=== PATIENT | female | born 1960 | race Caucasian/White ===

== ENCOUNTER 2017-03-12 10:16 | Inpatient (IN) | payer MEDICARE, MEDICAID ==
[~2017-03-12] VITALS: Ht 170.2 cm; Wt 63.0 kg
[~2017-03-12 10:16] MED LIST: ALBU2.5V13 NEB; ALBU6.7H3 IH; ASPI-612 PO; BUPR300T54 PO; CYAN100020 SL; FLUT1AER INH; FOLI0.4T2 PO; GUAI600T45 PO; HYDR-569 PO; IBUP-2264 PO; IPRA3AMP IH; METF500T PO; METH4TAB81 PO; MOME17SP NS; OMEG500C PO; PANT40TA4 PO; PRAV80TA PO; PRED10TA PO; QUET150T2 PO; ZALE10CA PO; [UNRECOGNIZED DRUG - CODE] PO
[2017-03-12] MEDS ORDERED: normal saline 1000ML IV soln IVB ONE (11:40)
[2017-03-12] MEDS ORDERED: methylPREDNISolone sod succ 125mg/2ml vial IV ONE (11:40)
[2017-03-12 11:58] LABS: BASOPHILS % (AUTO) 0 % (0-1); EOSINOPHILS # (AUTO) 0.3 X10'3 (0-0.9); EOSINOPHILS % (AUTO) 1.9 % (0-6); HEMOGLOBIN 12.3 g/dl (12.0-16.0); LYMPHOCYTES # (AUTO) 0.8 X10'3 (1.1-4.8); LYMPHOCYTES % (AUTO) 4.7 % (21-51); MEAN CORPUSCULAR HEMOGLOBIN 28.5 PG (27.0-31.0); MEAN CORPUSCULAR HGB CONC 33.2 % (33.0-36.5); MEAN CORPUSCULAR VOLUME 85.7 FL (78-98); MEAN PLATELET VOLUME 6.9 FL (7.4-10.4); MONOCYTES # (AUTO) 0.6 X10'3 (0-0.9); MONOCYTES % (AUTO) 3.5 % (2-12); NEUTROPHILS # (AUTO) 14.4 X10'3 (1.8-7.7); NEUTROPHILS % (AUTO) 89.9 % (42-75); PLATELET COUNT 309 X10'3 (140-440); RED BLOOD COUNT 4.32 X10'6 (4.20-5.60); RED CELL DISTRIBUTION WIDTH 15.5 % (11.5-14.5)
[2017-03-12 12:08] LABS: PROTHROMBIN TIME 9.9 SECONDS (9.0-12.0)
[2017-03-12 12:15] LABS: ALANINE AMINOTRANSFERASE 25 U/L (12-78); ALBUMIN 3.5 G/DL (3.4-5.0); ALBUMIN/GLOBULIN RATIO 0.8 (1.1-1.5); ALKALINE PHOSPHATASE 52 IU/L (46-116); ANION GAP 12 (8-16); ASPARTATE AMINO TRANSFERASE 10 U/L (10-37); BILIRUBIN,TOTAL 0.5 MG/DL (0.1-1.0); BLOOD UREA NITROGEN 11 MG/DL (7-18); BUN/CREATININE RATIO 10.8 (6.6-38.0); CALCIUM 9.8 MG/DL (8.5-10.1); CHLORIDE 102 MMOL/L (99-107); CREATININE 1.02 MG/DL (0.40-0.90); GLUCOSE 125 MG/DL (70-104); MAGNESIUM 1.6 MG/DL (1.5-2.4); POTASSIUM 4.1 MMOL/L (3.5-5.1); SODIUM 141 MMOL/L (135-145); eGFR 56 ML/MIN
[2017-03-12] MEDS ORDERED: ipratropium/albuterol 3ml nebule NEB ONE ×2 (12:55→13:30)
[2017-03-12] MEDS ORDERED: CefTRIAXone 1 gm/50ml D5W ADV 50 ML IV ONE (14:00)
[2017-03-12] MEDS ORDERED: ipratropium/albuterol 3ml nebule IH PRN (15:35)
[2017-03-12] MEDS ORDERED: potassium Cl 20 mEq SR tablet PO PRN ×2 (15:55)
[2017-03-12] MEDS ORDERED: ondansetron/PF 4mg/2ml inj IV PRN (15:55)
[2017-03-12] MEDS ORDERED: mag hydrox/Alum hydrox/simeth 30ml oral suspension PO PRN (15:55)
[2017-03-12] MEDS ORDERED: magnesium 2GM in 50ml NS 50 ML IV PRN (15:55)
[2017-03-12] MEDS ORDERED: potassium Cl 40MEQ/NS 500ml 500 ML IV PRN ×2 (15:55)
[2017-03-12] MEDS ORDERED: magnesium hydroxide 30ml (MOM) UD suspension PO PRN (15:55)
[2017-03-12] MEDS ORDERED: acetaminophen 325mg tablet PO PRN (15:55)
[2017-03-12] MEDS ORDERED: magnesium 4gm in 100ml NS 100 ML IV PRN (15:55)
[2017-03-12] MEDS ORDERED: HYDROcodone/acetaminophen 5mg/325mg tablet PO PRN (15:55)
[2017-03-12] MEDS ORDERED: glucagon, human recombinant 1mg kit SUBCUT PRN (16:55)
[2017-03-12] MEDS ORDERED: dextrose 50%-water 50ml dispensing syringe IV PRN ×2 (16:55)
[2017-03-12] MEDS ORDERED: dextrose ORAL solution 15 GM/59 ML bottle PO PRN ×2 (16:55)
[2017-03-12] MEDS ORDERED: MESSAGE TO PHARMACY PO ONE (16:55)
[2017-03-12 17:18] LABS: HEMOGLOBIN A1C 6.6 % (4.5-6.2)
[2017-03-12 20:00] VITALS: BP 142/76
[2017-03-12] MEDS: ipratropium/albuterol 3ml nebule NEB SCH (20:57)
[2017-03-12] MEDS: insulin Lispro (HumaLOG) vial - multi-dose SQ SCH (21:31)
[2017-03-12] MEDS: Insulin Detemir pen SQ SCH (21:32)
[2017-03-12] MEDS: methylPREDNISolone sod succ 125mg/2ml vial IV SCH (21:38)
[2017-03-12] MEDS: guaiFENesin 200 MG/10 ML oral syrup UD cup PO SCH (21:38)
[2017-03-12] MEDS: buPROPion SR 150mg tablet PO SCH (21:38)
[2017-03-12] MEDS: QUETIAPINE 150 MG TAB.SR.24H PO SCH (22:13)
[2017-03-12] MEDS: pravastatin 40mg tablet PO SCH (22:14)
[2017-03-13] VITALS: BP 129/77
[2017-03-13] MEDS: methylPREDNISolone sod succ 125mg/2ml vial IV SCH ×4 (02:20→21:31)
[2017-03-13] MEDS: guaiFENesin 200 MG/10 ML oral syrup UD cup PO SCH ×4 (02:20→21:33)
[2017-03-13] MEDS: ipratropium/albuterol 3ml nebule NEB SCH ×4 (02:45→21:23)
[2017-03-13 05:36] LABS: BASOPHILS % (AUTO) 0 % (0-1); EOSINOPHILS # (AUTO) 0.2 X10'3 (0-0.9); EOSINOPHILS % (AUTO) 1.6 % (0-6); HEMATOCRIT 33.8 % (35.0-45.0); LYMPHOCYTES # (AUTO) 0.5 X10'3 (1.1-4.8); LYMPHOCYTES % (AUTO) 3.8 % (21-51); MEAN CORPUSCULAR HEMOGLOBIN 28.1 PG (27.0-31.0); MEAN CORPUSCULAR HGB CONC 32.5 % (33.0-36.5); MEAN CORPUSCULAR VOLUME 86.4 FL (78-98); MEAN PLATELET VOLUME 7.4 FL (7.4-10.4); MONOCYTES # (AUTO) 0.4 X10'3 (0-0.9); MONOCYTES % (AUTO) 3.2 % (2-12); NEUTROPHILS % (AUTO) 91.4 % (42-75); PLATELET COUNT 287 X10'3 (140-440); RED BLOOD COUNT 3.91 X10'6 (4.20-5.60); RED CELL DISTRIBUTION WIDTH 15.6 % (11.5-14.5)
[2017-03-13 05:57] LABS: ALBUMIN 3.1 G/DL (3.4-5.0); ANION GAP 11 (8-16); BLOOD UREA NITROGEN 12 MG/DL (7-18); BUN/CREATININE RATIO 14.8 (6.6-38.0); CALCIUM 9.7 MG/DL (8.5-10.1); CHLORIDE 103 MMOL/L (99-107); CREATININE 0.81 MG/DL (0.40-0.90); GLUCOSE 222 MG/DL (70-104); MAGNESIUM 1.9 MG/DL (1.5-2.4); SODIUM 141 MMOL/L (135-145); TOTAL CARBON DIOXIDE 26.6 MMOL/L (24-32); eGFR 73 ML/MIN
[2017-03-13 07:00] VITALS: BP 128/81
[2017-03-13] MEDS: K and/or MAG REPLACEMENT MC SCH (08:00)
[2017-03-13] MEDS ORDERED: CefTRIAXone 1 gm/50ml D5W ADV 50 ML IV SCH (08:00)
[2017-03-13] MEDS: OMEGA-3/DHA/EPA/FISH OIL 1 EACH CAPSULE.DR PO SCH (08:00)
[2017-03-13] MEDS: fluticasone nasal spray 16GM bottle NS SCH (10:34)
[2017-03-13] MEDS: cefTRIAXone 1g/NS 100ml IVPB 100 ML IV SCH (10:35)
[2017-03-13] MEDS: enoxaparin 40mg/0.4ml syringe SUBCUT SCH (10:35)
[2017-03-13] MEDS: pantoprazole 40mg Tablet.DR PO SCH (10:36)
[2017-03-13] MEDS: aspirin 81mg tablet.DR PO SCH (10:36)
[2017-03-13] MEDS: buPROPion SR 150mg tablet PO SCH ×2 (10:36→21:32)
[2017-03-13] MEDS: folic acid 0.4mg tablet PO SCH (10:36)
[2017-03-13] MEDS: insulin Lispro (HumaLOG) vial - multi-dose SQ SCH ×3 (10:53→21:25)
[2017-03-13 11:00] VITALS: BP 131/85
[2017-03-13 18:00] VITALS: BP 140/86
[2017-03-13] MEDS: Insulin Detemir pen SQ SCH (21:28)
[2017-03-13] MEDS: lactobacillus rhamnosus 10,000 MMU CELLS/CAPSULE PO SCH (21:31)
[2017-03-13] MEDS: QUETIAPINE 150 MG TAB.SR.24H PO SCH (21:33)
[2017-03-13] MEDS: pravastatin 40mg tablet PO SCH (21:33)
[2017-03-14] VITALS: BP 103/62
[2017-03-14] MEDS: guaiFENesin 200 MG/10 ML oral syrup UD cup PO SCH ×4 (02:38→20:42)
[2017-03-14] MEDS: methylPREDNISolone sod succ 125mg/2ml vial IV SCH ×3 (02:38→14:05)
[2017-03-14] MEDS: ipratropium/albuterol 3ml nebule NEB SCH ×4 (02:51→20:29)
[2017-03-14 06:39] LABS: ALBUMIN 3.2 G/DL (3.4-5.0); ANION GAP 12 (8-16); BLOOD UREA NITROGEN 17 MG/DL (7-18); BUN/CREATININE RATIO 17.9 (6.6-38.0); CALCIUM 9.9 MG/DL (8.5-10.1); CHLORIDE 103 MMOL/L (99-107); CREATININE 0.95 MG/DL (0.40-0.90); GLUCOSE 180 MG/DL (70-104); POTASSIUM 4.1 MMOL/L (3.5-5.1); SODIUM 141 MMOL/L (135-145); TOTAL CARBON DIOXIDE 26.5 MMOL/L (24-32); eGFR 61 ML/MIN
[2017-03-14 07:13] LABS: BASOPHILS % (AUTO) 0.2 % (0-1); EOSINOPHILS % (AUTO) 0 % (0-6); HEMATOCRIT 35.3 % (35.0-45.0); HEMOGLOBIN 11.5 g/dl (12.0-16.0); LYMPHOCYTES # (AUTO) 0.6 X10'3 (1.1-4.8); LYMPHOCYTES % (AUTO) 3.4 % (21-51); MEAN CORPUSCULAR HEMOGLOBIN 28.4 PG (27.0-31.0); MEAN CORPUSCULAR HGB CONC 32.5 % (33.0-36.5); MEAN CORPUSCULAR VOLUME 87.3 FL (78-98); MEAN PLATELET VOLUME 7.2 FL (7.4-10.4); MONOCYTES # (AUTO) 0.6 X10'3 (0-0.9); MONOCYTES % (AUTO) 3.1 % (2-12); NEUTROPHILS # (AUTO) 17.5 X10'3 (1.8-7.7); NEUTROPHILS % (AUTO) 93.3 % (42-75); PLATELET COUNT 325 X10'3 (140-440); RED BLOOD COUNT 4.05 X10'6 (4.20-5.60); RED CELL DISTRIBUTION WIDTH 15.5 % (11.5-14.5); WHITE BLOOD COUNT 18.8 X10'3 (4.5-11.0)
[2017-03-14 08:00] VITALS: BP 132/89
[2017-03-14] MEDS: K and/or MAG REPLACEMENT MC SCH (08:00)
[2017-03-14] MEDS: OMEGA-3/DHA/EPA/FISH OIL 1 EACH CAPSULE.DR PO SCH (08:00)
[2017-03-14] MEDS: cefTRIAXone 1g/NS 100ml IVPB 100 ML IV SCH (08:20)
[2017-03-14] MEDS: enoxaparin 40mg/0.4ml syringe SUBCUT SCH (08:21)
[2017-03-14] MEDS: folic acid 0.4mg tablet PO SCH (08:24)
[2017-03-14] MEDS: lactobacillus rhamnosus 10,000 MMU CELLS/CAPSULE PO SCH ×2 (08:24→20:43)
[2017-03-14] MEDS: pantoprazole 40mg Tablet.DR PO SCH (08:24)
[2017-03-14] MEDS: buPROPion SR 150mg tablet PO SCH ×2 (08:25→20:43)
[2017-03-14] MEDS: aspirin 81mg tablet.DR PO SCH (08:28)
[2017-03-14] MEDS: fluticasone nasal spray 16GM bottle NS SCH (08:35)
[2017-03-14] MEDS: insulin Lispro (HumaLOG) vial - multi-dose SQ SCH ×3 (10:04→18:57)
[2017-03-14 11:00] VITALS: BP 146/88
[2017-03-14 18:00] VITALS: BP 141/95
[2017-03-14] MEDS: QUETIAPINE 150 MG TAB.SR.24H PO SCH (20:42)
[2017-03-14] MEDS: pravastatin 40mg tablet PO SCH (20:42)
[2017-03-14] MEDS: Insulin Detemir pen SQ SCH (20:48)
[2017-03-15] VITALS: BP 129/74
[2017-03-15] MEDS: guaiFENesin 200 MG/10 ML oral syrup UD cup PO SCH ×2 (02:36→07:37)
[2017-03-15] MEDS: ipratropium/albuterol 3ml nebule NEB SCH ×2 (02:56→08:33)
[2017-03-15 06:41] LABS: BASOPHILS % (AUTO) 0.2 % (0-1); EOSINOPHILS # (AUTO) 0.2 X10'3 (0-0.9); EOSINOPHILS % (AUTO) 1.2 % (0-6); HEMATOCRIT 38.6 % (35.0-45.0); HEMOGLOBIN 12.7 g/dl (12.0-16.0); LYMPHOCYTES # (AUTO) 1.4 X10'3 (1.1-4.8); MEAN CORPUSCULAR HEMOGLOBIN 28.4 PG (27.0-31.0); MEAN CORPUSCULAR HGB CONC 32.9 % (33.0-36.5); MEAN CORPUSCULAR VOLUME 86.5 FL (78-98); MEAN PLATELET VOLUME 6.9 FL (7.4-10.4); MONOCYTES # (AUTO) 1.2 X10'3 (0-0.9); MONOCYTES % (AUTO) 7.6 % (2-12); NEUTROPHILS # (AUTO) 12.7 X10'3 (1.8-7.7); PLATELET COUNT 324 X10'3 (140-440); RED BLOOD COUNT 4.46 X10'6 (4.20-5.60); RED CELL DISTRIBUTION WIDTH 15.3 % (11.5-14.5); WHITE BLOOD COUNT 15.5 X10'3 (4.5-11.0)
[2017-03-15] MEDS: K and/or MAG REPLACEMENT MC SCH (07:06)
[2017-03-15] MEDS: OMEGA-3/DHA/EPA/FISH OIL 1 EACH CAPSULE.DR PO SCH (07:06)
[2017-03-15 07:36] LABS: ALBUMIN 3.4 G/DL (3.4-5.0); ANION GAP 11 (8-16); BLOOD UREA NITROGEN 23 MG/DL (7-18); BUN/CREATININE RATIO 26.7 (6.6-38.0); CALCIUM 10.1 MG/DL (8.5-10.1); CHLORIDE 104 MMOL/L (99-107); CREATININE 0.86 MG/DL (0.40-0.90); GLUCOSE 86 MG/DL (70-104); MAGNESIUM 2.1 MG/DL (1.5-2.4); POTASSIUM 3.8 MMOL/L (3.5-5.1); SODIUM 142 MMOL/L (135-145); TOTAL CARBON DIOXIDE 26.9 MMOL/L (24-32); eGFR 68 ML/MIN
[2017-03-15] MEDS: enoxaparin 40mg/0.4ml syringe SUBCUT SCH (07:36)
[2017-03-15] MEDS: folic acid 0.4mg tablet PO SCH (07:37)
[2017-03-15] MEDS: aspirin 81mg tablet.DR PO SCH (07:37)
[2017-03-15] MEDS: lactobacillus rhamnosus 10,000 MMU CELLS/CAPSULE PO SCH (07:37)
[2017-03-15] MEDS: buPROPion SR 150mg tablet PO SCH (07:37)
[2017-03-15] MEDS: cefTRIAXone 1g/NS 100ml IVPB 100 ML IV SCH (07:38)
[2017-03-15] MEDS: pantoprazole 40mg Tablet.DR PO SCH (07:38)
[2017-03-15 08:00] VITALS: BP 127/87
[2017-03-15] MEDS ORDERED: predniSONE 20 mg tablet PO SCH (08:30)
[2017-03-15] MEDS: fluticasone nasal spray 16GM bottle NS SCH (08:49)
[2017-03-15] MEDS ORDERED: LEVO500T2 PO (12:15)
[2017-03-15] MEDS ORDERED: PRED10TA23 PO (12:15)
[2017-03-15 13:43] VITALS: BP 129/80
== END 2017-03-15 13:20 | disposition home or self-care (01) | DRG 871 ==
LOC: ER 10:17 → ED HOLD 15:53 → SUR 3N 19:17
PROVIDERS: ADMIT Internal Medicine; ATTEND Internal Medicine
DX: A41.9 Sepsis, unspecified organism (principal); J18.1 Lobar pneumonia, unspecified organism; J96.00 Acute respiratory failure, unspecified whether with hypoxia or hypercapnia; J44.0 Chronic obstructive pulmonary disease with (acute) lower respiratory infection; E03.9 Hypothyroidism, unspecified; E11.9 Type 2 diabetes mellitus without complications; F41.9 Anxiety disorder, unspecified; F32.9 Major depressive disorder, single episode, unspecified; E78.00 Pure hypercholesterolemia, unspecified; K21.9 Gastro-esophageal reflux disease without esophagitis; Z79.82 Long term (current) use of aspirin; Z79.84 Long term (current) use of oral hypoglycemic drugs; Z79.899 Other long term (current) drug therapy; Z88.1 Allergy status to other antibiotic agents; Z87.891 Personal history of nicotine dependence; Z80.0 Family history of malignant neoplasm of digestive organs
CPT/HCPCS: 36415; 71020; 80048; 80053; 82948; 83036; 83605; 83735; 84145; 84484; 85025; 85610; 87040; 87070; 87502; 87503; 93306; 94640; 94760; 96361; 96365; 96375; 99285; J0696; J1650; J2930; J7030; J7512

== ENCOUNTER 2017-04-08 23:43 | Inpatient (IN) | payer MEDICARE, MEDICAID ==
[~2017-04-08] VITALS: Ht 170.2 cm; Wt 84.0 kg
[~2017-04-08 23:43] MED LIST changes: -CYAN100020 SL; -HYDR-569 PO; -METH4TAB81 PO; -PRED10TA PO; +PRED10TA23 PO; -ZALE10CA PO; -[UNRECOGNIZED DRUG - CODE] PO
[2017-04-08] MEDS ORDERED: LORazepam 2 mg/ml vial IV ONE (23:45)
[2017-04-08] MEDS ORDERED: HYDROmorphone inj. 0.5 MG/0.5 ML DISP.SYRIN IV ONE (23:45)
[2017-04-08] MEDS ORDERED: methylPREDNISolone sod succ 125mg/2ml vial IV ONE (23:45)
[2017-04-08] MEDS ORDERED: ipratropium/albuterol 3ml nebule NEB ONE (23:45)
[2017-04-09] VITALS (7 sets, daily range): BP systolic 102–128; BP diastolic 53–91
[2017-04-09 00:01] LABS: ABG BASE EXCESS -2.1 mmol/L (-2.0-3.0); ABG HCO3 23.9 mmol/L (22.0-26.0); ABG OXYGEN SATURATION 89.8 % (95-98); ABG PCO2 (T) 44.7 mmHg (32.0-45.0); ABG PH (T) 7.344 (7.350-7.450); ABG PO2 (T) 58.6 mmHg (83-108); ALLEN'S TEST Positive; FCOHb 0.8 % (0.5-1.5); FLOW 2 L/min; FMetHb 0.2 % (0.3-1.12); FO2Hb 88.9 % (94-100); PATIENT TEMPERATURE 36.5; RESPIRATORY RATE (OBSERVED) 20 b/min
[2017-04-09] MEDS ORDERED: HYDROmorphone 1 mg/ml syringe IV ONE (00:15)
[2017-04-09] MEDS ORDERED: LORazepam 2 mg/ml vial IV ONE ×2 (00:15→03:20)
[2017-04-09 00:27] LABS: BASOPHILS % (AUTO) 0 % (0-1); EOSINOPHILS % (AUTO) 0.2 % (0-6); HEMATOCRIT 35.9 % (35.0-45.0); LYMPHOCYTES # (AUTO) 1.4 X10'3 (1.1-4.8); MEAN CORPUSCULAR HEMOGLOBIN 28.9 PG (27.0-31.0); MEAN CORPUSCULAR HGB CONC 33.4 % (33.0-36.5); MEAN CORPUSCULAR VOLUME 86.4 FL (78-98); MEAN PLATELET VOLUME 7.5 FL (7.4-10.4); MONOCYTES # (AUTO) 0.8 X10'3 (0-0.9); MONOCYTES % (AUTO) 4.6 % (2-12); NEUTROPHILS # (AUTO) 15.6 X10'3 (1.8-7.7); NEUTROPHILS % (AUTO) 87.2 % (42-75); PLATELET COUNT 256 X10'3 (140-440); RED BLOOD COUNT 4.16 X10'6 (4.20-5.60); RED CELL DISTRIBUTION WIDTH 15.8 % (11.5-14.5); WHITE BLOOD COUNT 17.8 X10'3 (4.5-11.0)
[2017-04-09 00:39] LABS: ALANINE AMINOTRANSFERASE 27 U/L (12-78); ALBUMIN 3.4 G/DL (3.4-5.0); ALKALINE PHOSPHATASE 36 IU/L (46-116); ANION GAP 9 (8-16); ASPARTATE AMINO TRANSFERASE 14 U/L (10-37); BILIRUBIN,TOTAL 0.9 MG/DL (0.1-1.0); BLOOD UREA NITROGEN 10 MG/DL (7-18); BUN/CREATININE RATIO 8.3 (6.6-38.0); CALCIUM 8.4 MG/DL (8.5-10.1); CHLORIDE 96 MMOL/L (99-107); GLUCOSE 138 MG/DL (70-104); POTASSIUM 3.4 MMOL/L (3.5-5.1); SODIUM 133 MMOL/L (135-145); TOTAL CARBON DIOXIDE 27.7 MMOL/L (24-32); TOTAL PROTEIN 6.7 G/DL (6.4-8.2); eGFR 46 ML/MIN
[2017-04-09] MEDS ORDERED: CHOL2000 PO (00:51)
[2017-04-09] MEDS ORDERED: CYAN-19 PO (00:51)
[2017-04-09] MEDS ORDERED: MULT-1085 PO (00:51)
[2017-04-09] MEDS ORDERED: FLUT1AER INH (00:51)
[2017-04-09] MEDS ORDERED: TIOT4MIS5 (00:51)
[2017-04-09] MEDS ORDERED: ALBU18HF2 INH (00:51)
[2017-04-09] MEDS ORDERED: OMEP40CA37 PO (00:51)
[2017-04-09] MEDS ORDERED: DULO-31 PO (00:51)
[2017-04-09] MEDS ORDERED: levoFLOXACIN-Levaquin 750MG/D5 150 ML IV STA (00:54)
[2017-04-09 00:55] LABS: TOTAL CELLS COUNTED 100
[2017-04-09] MEDS ORDERED: normal saline 1000ML IV soln IVB ONE ×2 (00:55)
[2017-04-09 00:56] LABS: ANISOCYTOSIS 1+; PLATELET ESTIMATE NORMAL; POLYCHROMASIA FEW; TOXIC GRANULATION 1+
[2017-04-09 01:03] LABS: URINE AMPHETAMINE SCREEN POSITIVE (Neg); URINE BARBITUATE SCREEN NEGATIVE (Neg); URINE BENZODIAZEPINES SCREEN NEGATIVE (Neg); URINE CANNABINOID SCREEN NEGATIVE (Neg); URINE COCAINE SCREEN NEGATIVE (Neg); URINE METHADONE SCREEN NEGATIVE (Neg); URINE OPIATE SCREEN NEGATIVE (Neg); URINE PHENCYCLIDINE SCREEN NEGATIVE (Neg)
[2017-04-09] MEDS ORDERED: iohexol 350MG/ML 100ml bottle IV ONE ×2 (01:15→01:28)
[2017-04-09 01:16] LABS: INR 1.1 INR; PARTIAL THROMBOPLASTIN TIME 25 SECONDS (22-32); PROTHROMBIN TIME 11.4 SECONDS (9.0-12.0)
[2017-04-09] MEDS ORDERED: oxymetazoline 15 ML nasal spray NS ONE (02:30)
[2017-04-09] MEDS ORDERED: normal saline 1000ml 1,000 ML IV SCH (03:11)
[2017-04-09] MEDS ORDERED: mag hydrox/Alum hydrox/simeth 30ml oral suspension PO PRN (03:15)
[2017-04-09] MEDS ORDERED: ondansetron/PF 4mg/2ml inj IV PRN (03:15)
[2017-04-09] MEDS ORDERED: magnesium hydroxide 30ml (MOM) UD suspension PO PRN (03:15)
[2017-04-09] MEDS ORDERED: dextrose 50%-water 50ml dispensing syringe IV PRN ×2 (03:20)
[2017-04-09] MEDS ORDERED: dextrose ORAL solution 15 GM/59 ML bottle PO PRN ×2 (03:20)
[2017-04-09] MEDS ORDERED: MESSAGE TO PHARMACY PO ONE (03:20)
[2017-04-09] MEDS ORDERED: glucagon, human recombinant 1mg kit SUBCUT PRN (03:20)
[2017-04-09 03:45] LABS: ABG BASE EXCESS -5.3 mmol/L (-2.0-3.0); ABG HCO3 25.9 mmol/L (22.0-26.0); ABG OXYGEN SATURATION 90.3 % (95-98); ABG PCO2 (T) 82.8 mmHg (32.0-45.0); ABG PH (T) 7.109 (7.350-7.450); ABG PO2 (T) 73.4 mmHg (83-108); FCOHb 0.6 % (0.5-1.5); FLOW 15 L/min; FMetHb 0.2 % (0.3-1.12); FO2Hb 89.6 % (94-100); PATIENT TEMPERATURE 36.5; RESPIRATORY RATE (OBSERVED) 20 b/min; TOTAL HEMOGLOBIN 12.2 G/dl (12.0-16.0)
[2017-04-09 04:56] LABS: ABG BASE EXCESS -5.5 mmol/L (-2.0-3.0); ABG HCO3 24.3 mmol/L (22.0-26.0); ABG OXYGEN SATURATION 93.6 % (95-98); ABG PCO2 (T) 67.7 mmHg (32.0-45.0); ABG PO2 (T) 78.9 mmHg (83-108); FCOHb 0.7 % (0.5-1.5); FMetHb 0.3 % (0.3-1.12); FO2Hb 92.7 % (94-100); PATIENT TEMPERATURE 36.5; RESPIRATORY RATE 20 b/min; TOTAL HEMOGLOBIN 12.7 G/dl (12.0-16.0)
[2017-04-09] MEDS: pantoprazole 40mg Tablet.DR PO SCH ×3 (07:30→20:14)
[2017-04-09] MEDS ORDERED: lactobacillus rhamnosus 10,000 MMU CELLS/CAPSULE PO SCH (07:30)
[2017-04-09] MEDS: methylPREDNISolone sod succ 125mg/2ml vial IV SCH ×2 (07:58→20:18)
[2017-04-09] MEDS: heparin, porcine 5000 units/ml vial SQ SCH ×2 (07:59→20:23)
[2017-04-09] MEDS: albuterol 2.5 MG/3 ML nebule NEB PRN ×3 (08:49→16:19)
[2017-04-09] MEDS ORDERED: sodium bicarbonate (8.4%) inj. 150 MEQ in sodium chloride 0.45% 1,000 ML IV SCH (13:15)
[2017-04-09] MEDS ORDERED: pantoprazole 40mg Tablet.DR PO ONE (14:45)
[2017-04-09 16:15] LABS: ABG BASE EXCESS -1.9 mmol/L (-2.0-3.0); ABG HCO3 23.5 mmol/L (22.0-26.0); ABG OXYGEN SATURATION 92.8 % (95-98); ABG PCO2 (T) 42.6 mmHg (32.0-45.0); ABG PO2 (T) 63.3 mmHg (83-108); ALLEN'S TEST Positive; FCOHb 0.1 % (0.5-1.5); FLOW 4 L/min; FMetHb 0.2 % (0.3-1.12); FO2Hb 92.5 % (94-100); RESPIRATORY RATE (OBSERVED) 24 b/min; TOTAL HEMOGLOBIN 11.5 G/dl (12.0-16.0)
[2017-04-09] MEDS ORDERED: LORazepam 2 mg/ml vial IV PRN (16:45)
[2017-04-09] MEDS: ipratropium/albuterol 3ml nebule IH PRN ×2 (19:14→23:19)
[2017-04-09] MEDS: QUETIAPINE 150 MG TAB.SR.24H PO SCH (20:13)
[2017-04-09] MEDS: guaiFENesin ER 600mg tablet PO SCH (20:13)
[2017-04-09] MEDS: levoFLOXACIN-Levaquin 500mg/D5 100 ML IV SCH (20:23)
[2017-04-09] MEDS: insulin glargine (Lantus) pen - multi-dose SQ SCH (21:00)
[2017-04-10 03:00] VITALS: BP 96/54
[2017-04-10] MEDS: albuterol 2.5 MG/3 ML nebule NEB PRN ×2 (03:39→09:08)
[2017-04-10 06:00] VITALS: BP 103/60
[2017-04-10 06:35] LABS: BASOPHILS % (AUTO) 0 % (0-1); EOSINOPHILS % (AUTO) 0.1 % (0-6); HEMATOCRIT 29.9 % (35.0-45.0); HEMOGLOBIN 10.4 g/dl (12.0-16.0); LYMPHOCYTES # (AUTO) 0.5 X10'3 (1.1-4.8); LYMPHOCYTES % (AUTO) 2.7 % (21-51); MEAN CORPUSCULAR HEMOGLOBIN 30.3 PG (27.0-31.0); MEAN CORPUSCULAR VOLUME 86.6 FL (78-98); MONOCYTES # (AUTO) 0.6 X10'3 (0-0.9); MONOCYTES % (AUTO) 3.2 % (2-12); NEUTROPHILS # (AUTO) 18.9 X10'3 (1.8-7.7); PLATELET COUNT 211 X10'3 (140-440); RED BLOOD COUNT 3.45 X10'6 (4.20-5.60); RED CELL DISTRIBUTION WIDTH 15.8 % (11.5-14.5)
[2017-04-10 06:57] LABS: ALANINE AMINOTRANSFERASE 32 U/L (12-78); ALBUMIN 2.6 G/DL (3.4-5.0); ALBUMIN/GLOBULIN RATIO 0.7 (1.1-1.5); ALKALINE PHOSPHATASE 32 IU/L (46-116); ANION GAP 7 (8-16); ASPARTATE AMINO TRANSFERASE 30 U/L (10-37); BILIRUBIN,TOTAL 0.4 MG/DL (0.1-1.0); BLOOD UREA NITROGEN 14 MG/DL (7-18); BUN/CREATININE RATIO 17.5 (6.6-38.0); CALCIUM 8.7 MG/DL (8.5-10.1); CHLORIDE 106 MMOL/L (99-107); GLUCOSE 140 MG/DL (70-104); POTASSIUM 3.9 MMOL/L (3.5-5.1); SODIUM 142 MMOL/L (135-145); TOTAL PROTEIN 6.1 G/DL (6.4-8.2); eGFR 74 ML/MIN
[2017-04-10] MEDS: pantoprazole 40mg Tablet.DR PO SCH ×3 (08:19→20:42)
[2017-04-10] MEDS: guaiFENesin ER 600mg tablet PO SCH ×2 (08:20→20:41)
[2017-04-10] MEDS: aspirin 81mg tablet.DR PO SCH (08:20)
[2017-04-10] MEDS: LACTOBACILLUS RHAMNOSUS GG 15 billion unit sprinkle caps PO SCH (08:20)
[2017-04-10] MEDS: duloxetine 30mg CAPSULE.DR PO SCH (08:20)
[2017-04-10] MEDS: methylPREDNISolone sod succ 125mg/2ml vial IV SCH ×2 (08:21→20:41)
[2017-04-10] MEDS: heparin, porcine 5000 units/ml vial SQ SCH ×2 (08:21→20:43)
[2017-04-10 11:00] VITALS: BP 137/70
[2017-04-10 15:00] VITALS: BP 141/77
[2017-04-10] MEDS: ipratropium/albuterol 3ml nebule IH PRN ×2 (16:45→20:30)
[2017-04-10 19:00] VITALS: BP 130/82
[2017-04-10] MEDS: QUETIAPINE 150 MG TAB.SR.24H PO SCH (20:42)
[2017-04-10] MEDS: levoFLOXACIN-Levaquin 500mg/D5 100 ML IV SCH (20:42)
[2017-04-10] MEDS: insulin glargine (Lantus) pen - multi-dose SQ SCH (20:52)
[2017-04-10 23:00] VITALS: BP 141/84
[2017-04-11] MEDS: albuterol 2.5 MG/3 ML nebule NEB PRN ×5 (01:41→19:11)
[2017-04-11 03:00] VITALS: BP 124/63
[2017-04-11 05:34] LABS: BASOPHILS % (AUTO) 0.1 % (0-1); EOSINOPHILS % (AUTO) 0 % (0-6); HEMOGLOBIN 10.2 g/dl (12.0-16.0); LYMPHOCYTES # (AUTO) 0.3 X10'3 (1.1-4.8); MEAN PLATELET VOLUME 8.1 FL (7.4-10.4); MONOCYTES # (AUTO) 0.4 X10'3 (0-0.9)
[2017-04-11 05:38] LABS: HEMATOCRIT 30.6 % (35.0-45.0); LYMPHOCYTES % (AUTO) 2.1 % (21-51); MEAN CORPUSCULAR HEMOGLOBIN 28.9 PG (27.0-31.0); MEAN CORPUSCULAR HGB CONC 33.4 % (33.0-36.5); MEAN CORPUSCULAR VOLUME 86.3 FL (78-98); MONOCYTES % (AUTO) 3.2 % (2-12); NEUTROPHILS # (AUTO) 12.6 X10'3 (1.8-7.7); NEUTROPHILS % (AUTO) 94.6 % (42-75); PLATELET COUNT 236 X10'3 (140-440); RED BLOOD COUNT 3.55 X10'6 (4.20-5.60); WHITE BLOOD COUNT 13.3 X10'3 (4.5-11.0)
[2017-04-11 06:00] VITALS: BP 136/77
[2017-04-11 06:22] LABS: ALANINE AMINOTRANSFERASE 27 U/L (12-78); ALBUMIN 2.6 G/DL (3.4-5.0); ALBUMIN/GLOBULIN RATIO 0.7 (1.1-1.5); ALKALINE PHOSPHATASE 43 IU/L (46-116); ANION GAP 6 (8-16); ASPARTATE AMINO TRANSFERASE 20 U/L (10-37); BILIRUBIN,TOTAL 0.3 MG/DL (0.1-1.0); BLOOD UREA NITROGEN 15 MG/DL (7-18); BUN/CREATININE RATIO 21.4 (6.6-38.0); CALCIUM 9.2 MG/DL (8.5-10.1); CHLORIDE 105 MMOL/L (99-107); GLUCOSE 215 MG/DL (70-104); POTASSIUM 4.2 MMOL/L (3.5-5.1); SODIUM 141 MMOL/L (135-145); TOTAL CARBON DIOXIDE 30.2 MMOL/L (24-32); TOTAL PROTEIN 6.3 G/DL (6.4-8.2); eGFR 87 ML/MIN
[2017-04-11] MEDS: duloxetine 30mg CAPSULE.DR PO SCH (07:16)
[2017-04-11] MEDS: LACTOBACILLUS RHAMNOSUS GG 15 billion unit sprinkle caps PO SCH (07:17)
[2017-04-11] MEDS: pantoprazole 40mg Tablet.DR PO SCH ×2 (07:17→20:22)
[2017-04-11] MEDS: guaiFENesin ER 600mg tablet PO SCH (07:17)
[2017-04-11] MEDS: heparin, porcine 5000 units/ml vial SQ SCH ×2 (07:17→20:22)
[2017-04-11] MEDS: aspirin 81mg tablet.DR PO SCH (07:18)
[2017-04-11] MEDS ORDERED: furosemide 20 MG/2 ML vial IV ONE ×2 (08:00→12:00)
[2017-04-11] MEDS ORDERED: predniSONE 20 mg tablet PO SCH (08:00)
[2017-04-11 11:00] VITALS: BP 140/83
[2017-04-11] MEDS: guaiFENesin 200 MG/10 ML oral syrup UD cup PO SCH ×2 (12:50→20:21)
[2017-04-11] MEDS: insulin Lispro (HumaLOG) vial - multi-dose SQ SCH ×2 (13:42→18:49)
[2017-04-11 15:00] VITALS: BP 146/77
[2017-04-11 18:00] VITALS: BP 119/88
[2017-04-11] MEDS ORDERED: racepinephrine 11.25mg/0.5ml nebule IH ONE (19:30)
[2017-04-11] MEDS: albuterol 2.5 MG/3 ML nebule NEB SCH ×3 (19:30→23:01)
[2017-04-11] MEDS ORDERED: racepinephrine 11.25mg/0.5ml nebule IH PRN (20:20)
[2017-04-11] MEDS: QUETIAPINE 150 MG TAB.SR.24H PO SCH (20:21)
[2017-04-11] MEDS: levoFLOXACIN-Levaquin 500mg/D5 100 ML IV SCH (20:21)
[2017-04-11] MEDS: insulin glargine (Lantus) pen - multi-dose SQ SCH (20:30)
[2017-04-11] MEDS: acetaminophen 325mg tablet PO PRN (20:31)
[2017-04-11 22:00] VITALS: BP 133/67
[2017-04-12 02:00] VITALS: BP 104/61
[2017-04-12] MEDS: albuterol 2.5 MG/3 ML nebule NEB SCH ×6 (04:28→23:10)
[2017-04-12] MEDS: acetaminophen 325mg tablet PO PRN (04:33)
[2017-04-12] MEDS ORDERED: HYDROmorphone 1 mg/ml syringe IV PRN (04:40)
[2017-04-12] MEDS: HYDROmorphone inj. 0.5 MG/0.5 ML DISP.SYRIN IV PRN (05:19)
[2017-04-12 06:00] VITALS: BP 122/71
[2017-04-12 06:20] LABS: BASOPHILS % (AUTO) 0.1 % (0-1); EOSINOPHILS # (AUTO) 0.1 X10'3 (0-0.9); EOSINOPHILS % (AUTO) 0.9 % (0-6); HEMOGLOBIN 11.3 g/dl (12.0-16.0); LYMPHOCYTES # (AUTO) 1.8 X10'3 (1.1-4.8); LYMPHOCYTES % (AUTO) 17.1 % (21-51); MEAN CORPUSCULAR HEMOGLOBIN 28.1 PG (27.0-31.0); MEAN CORPUSCULAR HGB CONC 32.4 % (33.0-36.5); MEAN CORPUSCULAR VOLUME 86.9 FL (78-98); MEAN PLATELET VOLUME 7.4 FL (7.4-10.4); MONOCYTES # (AUTO) 0.8 X10'3 (0-0.9); MONOCYTES % (AUTO) 7.6 % (2-12); NEUTROPHILS # (AUTO) 7.9 X10'3 (1.8-7.7); NEUTROPHILS % (AUTO) 74.3 % (42-75); PLATELET COUNT 264 X10'3 (140-440); RED BLOOD COUNT 4.03 X10'6 (4.20-5.60); RED CELL DISTRIBUTION WIDTH 17.1 % (11.5-14.5); WHITE BLOOD COUNT 10.6 X10'3 (4.5-11.0)
[2017-04-12 06:46] LABS: ALANINE AMINOTRANSFERASE 32 U/L (12-78); ALBUMIN/GLOBULIN RATIO 0.8 (1.1-1.5); ALKALINE PHOSPHATASE 39 IU/L (46-116); ANION GAP 6 (8-16); ASPARTATE AMINO TRANSFERASE 16 U/L (10-37); BILIRUBIN,TOTAL 0.2 MG/DL (0.1-1.0); BLOOD UREA NITROGEN 18 MG/DL (7-18); BUN/CREATININE RATIO 22.5 (6.6-38.0); CALCIUM 9.5 MG/DL (8.5-10.1); CHLORIDE 100 MMOL/L (99-107); GLUCOSE 97 MG/DL (70-104); POTASSIUM 3.4 MMOL/L (3.5-5.1); SODIUM 141 MMOL/L (135-145); TOTAL CARBON DIOXIDE 35.4 MMOL/L (24-32); TOTAL PROTEIN 6.9 G/DL (6.4-8.2); eGFR 74 ML/MIN
[2017-04-12] MEDS: LACTOBACILLUS RHAMNOSUS GG 15 billion unit sprinkle caps PO SCH (08:32)
[2017-04-12] MEDS: duloxetine 30mg CAPSULE.DR PO SCH (08:32)
[2017-04-12] MEDS: aspirin 81mg tablet.DR PO SCH (08:33)
[2017-04-12] MEDS: heparin, porcine 5000 units/ml vial SQ SCH ×2 (08:33→20:47)
[2017-04-12] MEDS: pantoprazole 40mg Tablet.DR PO SCH ×2 (08:33→20:46)
[2017-04-12] MEDS: guaiFENesin 200 MG/10 ML oral syrup UD cup PO SCH ×3 (08:33→20:49)
[2017-04-12] MEDS: insulin Lispro (HumaLOG) vial - multi-dose SQ SCH ×3 (08:42→19:06)
[2017-04-12] MEDS: predniSONE 20 mg tablet PO SCH (08:46)
[2017-04-12 11:00] VITALS: BP 124/69
[2017-04-12 15:00] VITALS: BP 149/82
[2017-04-12 18:00] VITALS: BP 122/86
[2017-04-12] MEDS: QUETIAPINE 150 MG TAB.SR.24H PO SCH (20:45)
[2017-04-12] MEDS ORDERED: levoFLOXACIN 500mg tablet PO SCH (21:00)
[2017-04-12] MEDS: insulin glargine (Lantus) pen - multi-dose SQ SCH (21:33)
[2017-04-12 22:00] VITALS: BP 142/79
[2017-04-13 02:00] VITALS: BP 121/72
[2017-04-13] MEDS: albuterol 2.5 MG/3 ML nebule NEB SCH ×5 (03:32→16:35)
[2017-04-13] MEDS: HYDROmorphone inj. 0.5 MG/0.5 ML DISP.SYRIN IV PRN (04:45)
[2017-04-13 05:23] LABS: BASOPHILS % (AUTO) 0.2 % (0-1); EOSINOPHILS # (AUTO) 0.1 X10'3 (0-0.9); EOSINOPHILS % (AUTO) 1.5 % (0-6); HEMATOCRIT 39.2 % (35.0-45.0); HEMOGLOBIN 12.9 g/dl (12.0-16.0); LYMPHOCYTES # (AUTO) 2.2 X10'3 (1.1-4.8); LYMPHOCYTES % (AUTO) 28.4 % (21-51); MEAN CORPUSCULAR HEMOGLOBIN 28.6 PG (27.0-31.0); MEAN CORPUSCULAR HGB CONC 33.1 % (33.0-36.5); MEAN CORPUSCULAR VOLUME 86.6 FL (78-98); MEAN PLATELET VOLUME 7.1 FL (7.4-10.4); MONOCYTES # (AUTO) 0.9 X10'3 (0-0.9); NEUTROPHILS # (AUTO) 4.4 X10'3 (1.8-7.7); NEUTROPHILS % (AUTO) 57.9 % (42-75); PLATELET COUNT 281 X10'3 (140-440); RED BLOOD COUNT 4.53 X10'6 (4.20-5.60); RED CELL DISTRIBUTION WIDTH 16.8 % (11.5-14.5); WHITE BLOOD COUNT 7.6 X10'3 (4.5-11.0)
[2017-04-13 05:50] LABS: ALANINE AMINOTRANSFERASE 51 U/L (12-78); ALBUMIN 3.3 G/DL (3.4-5.0); ALBUMIN/GLOBULIN RATIO 0.8 (1.1-1.5); ALKALINE PHOSPHATASE 39 IU/L (46-116); ANION GAP 6 (8-16); ASPARTATE AMINO TRANSFERASE 18 U/L (10-37); BILIRUBIN,TOTAL 0.3 MG/DL (0.1-1.0); BLOOD UREA NITROGEN 16 MG/DL (7-18); CALCIUM 9.8 MG/DL (8.5-10.1); CHLORIDE 100 MMOL/L (99-107); GLUCOSE 86 MG/DL (70-104); POTASSIUM 3.4 MMOL/L (3.5-5.1); SODIUM 141 MMOL/L (135-145); TOTAL CARBON DIOXIDE 35.5 MMOL/L (24-32); TOTAL PROTEIN 7.5 G/DL (6.4-8.2); eGFR 74 ML/MIN
[2017-04-13 06:30] VITALS: BP 111/60
[2017-04-13] MEDS: heparin, porcine 5000 units/ml vial SQ SCH (08:00)
[2017-04-13] MEDS: duloxetine 30mg CAPSULE.DR PO SCH (08:11)
[2017-04-13] MEDS: guaiFENesin 200 MG/10 ML oral syrup UD cup PO SCH ×2 (08:11→13:18)
[2017-04-13] MEDS: LACTOBACILLUS RHAMNOSUS GG 15 billion unit sprinkle caps PO SCH (08:11)
[2017-04-13] MEDS: aspirin 81mg tablet.DR PO SCH (08:11)
[2017-04-13] MEDS: pantoprazole 40mg Tablet.DR PO SCH (08:11)
[2017-04-13] MEDS: predniSONE 20 mg tablet PO SCH (08:12)
[2017-04-13] MEDS ORDERED: potassium Cl 20 mEq SR tablet PO STA ×2 (08:27→13:38)
[2017-04-13] MEDS: insulin Lispro (HumaLOG) vial - multi-dose SQ SCH (09:13)
[2017-04-13] MEDS ORDERED: GUAI100L97 PO (10:33)
[2017-04-13] MEDS ORDERED: PRED10TA23 PO (10:33)
[2017-04-13] MEDS ORDERED: LEVO500T89 PO (10:33)
[2017-04-13 11:00] VITALS: BP 138/79
[2017-04-13] MEDS ORDERED: potassium Cl 20 mEq SR tablet PO ONE (11:30)
[2017-04-13 15:00] VITALS: BP 136/87
== END 2017-04-13 17:53 | disposition home or self-care (01) | DRG 193 ==
LOC: ER 23:44 → ED HOLD 04-09 03:11 → PCU 3S 04-09 05:05
PROVIDERS: ADMIT Internal Medicine; ATTEND Internal Medicine
PROC: 5A09357 Assistance with Respiratory Ventilation, Less than 24 Consecutive Hours, Continuous Positive Airway Pressure (ICD-10-PCS; principal; 2017-04-09)
PROC: B32T1ZZ Computerized Tomography (CT Scan) of Left Pulmonary Artery using Low Osmolar Contrast (ICD-10-PCS; 2017-04-09)
PROC: B3201ZZ Computerized Tomography (CT Scan) of Thoracic Aorta using Low Osmolar Contrast (ICD-10-PCS; 2017-04-09)
PROC: B32S1ZZ Computerized Tomography (CT Scan) of Right Pulmonary Artery using Low Osmolar Contrast (ICD-10-PCS; 2017-04-09)
PROC: 5A09357 Assistance with Respiratory Ventilation, Less than 24 Consecutive Hours, Continuous Positive Airway Pressure (ICD-10-PCS; 2017-04-10)
DX: J18.9 Pneumonia, unspecified organism (principal); J96.01 Acute respiratory failure with hypoxia; J96.02 Acute respiratory failure with hypercapnia; N17.9 Acute kidney failure, unspecified; E87.2 Acidosis; J44.0 Chronic obstructive pulmonary disease with (acute) lower respiratory infection; R65.10 Systemic inflammatory response syndrome (SIRS) of non-infectious origin without acute organ dysfunction; J44.1 Chronic obstructive pulmonary disease with (acute) exacerbation; E11.9 Type 2 diabetes mellitus without complications; K21.9 Gastro-esophageal reflux disease without esophagitis; E78.00 Pure hypercholesterolemia, unspecified; F32.9 Major depressive disorder, single episode, unspecified; F41.9 Anxiety disorder, unspecified; G89.29 Other chronic pain; M54.9 Dorsalgia, unspecified; F15.10 Other stimulant abuse, uncomplicated; F17.210 Nicotine dependence, cigarettes, uncomplicated; T38.0X5A Adverse effect of glucocorticoids and synthetic analogues, initial encounter; Z60.2 Problems related to living alone; Z88.1 Allergy status to other antibiotic agents; Z79.899 Other long term (current) drug therapy; Z79.01 Long term (current) use of anticoagulants; Z79.82 Long term (current) use of aspirin; Z79.84 Long term (current) use of oral hypoglycemic drugs; Z80.9 Family history of malignant neoplasm, unspecified; Y92.89 Other specified places as the place of occurrence of the external cause; Z71.6 Tobacco abuse counseling
CPT/HCPCS: 36415; 36600; 71045; 71275; 80053; 80305; 82803; 82948; 83036; 83605; 83880; 84484; 85018; 85025; 85610; 85730; 87040; 87070; 93005; 94640; 94660; 94667; 94668; 94760; 96365; 96366; 96375; 96376; 99291; A6258; J1170; J1644; J1815; J1940; J1956; J2060; J2930; J7030; J7512; Q9967

== ENCOUNTER 2017-05-11 09:12 | Inpatient (IN) | payer MEDICARE, MEDICAID ==
[~2017-05-11] VITALS: Ht 170.2 cm; Wt 88.0 kg
[~2017-05-11 09:12] MED LIST changes: +ALBU18HF2 INH; -BUPR300T54 PO; +CHOL2000 PO; +CYAN-19 PO; +DULO-31 PO; +GUAI100L97 PO; -GUAI600T45 PO; -IBUP-2264 PO; +LEVO500T89 PO; +MULT-1085 PO; +OMEP40CA37 PO; -PANT40TA4 PO; +PRED10TA PO; -PRED10TA23 PO; +TIOT4MIS5
[2017-05-11] MEDS ORDERED: methylPREDNISolone sod succ 125mg/2ml vial IV ONE (10:10)
[2017-05-11] MEDS ORDERED: normal saline 1000ML IV soln IVB ONE ×2 (10:10→13:10)
[2017-05-11] MEDS ORDERED: ipratropium/albuterol 3ml nebule NEB ONE (10:10)
[2017-05-11 10:58] LABS: BASOPHILS % (AUTO) 0.4 % (0-1); EOSINOPHILS # (AUTO) 0.2 X10'3 (0-0.9); EOSINOPHILS % (AUTO) 1.9 % (0-6); HEMATOCRIT 34.4 % (35.0-45.0); HEMOGLOBIN 11.5 g/dl (12.0-16.0); LYMPHOCYTES # (AUTO) 2.5 X10'3 (1.1-4.8); LYMPHOCYTES % (AUTO) 28.6 % (21-51); MEAN CORPUSCULAR HEMOGLOBIN 28.6 PG (27.0-31.0); MEAN CORPUSCULAR HGB CONC 33.4 % (33.0-36.5); MEAN CORPUSCULAR VOLUME 85.6 FL (78-98); MEAN PLATELET VOLUME 6.4 FL (7.4-10.4); MONOCYTES # (AUTO) 0.8 X10'3 (0-0.9); MONOCYTES % (AUTO) 8.9 % (2-12); NEUTROPHILS # (AUTO) 5.2 X10'3 (1.8-7.7); NEUTROPHILS % (AUTO) 60.2 % (42-75); PLATELET COUNT 447 X10'3 (140-440); RED BLOOD COUNT 4.01 X10'6 (4.20-5.60); RED CELL DISTRIBUTION WIDTH 16.4 % (11.5-14.5); WHITE BLOOD COUNT 8.7 X10'3 (4.5-11.0)
[2017-05-11 11:22] LABS: ALANINE AMINOTRANSFERASE 22 U/L (12-78); ALBUMIN 2.8 G/DL (3.4-5.0); ALBUMIN/GLOBULIN RATIO 0.7 (1.1-1.5); ALKALINE PHOSPHATASE 69 IU/L (46-116); ANION GAP 10 (8-16); ASPARTATE AMINO TRANSFERASE 7 U/L (10-37); BILIRUBIN,TOTAL 0.2 MG/DL (0.1-1.0); BLOOD UREA NITROGEN 12 MG/DL (7-18); BUN/CREATININE RATIO 17.1 (6.6-38.0); CALCIUM 8.4 MG/DL (8.5-10.1); CHLORIDE 101 MMOL/L (99-107); GLUCOSE 140 MG/DL (70-104); POTASSIUM 3.9 MMOL/L (3.5-5.1); SODIUM 139 MMOL/L (135-145); TOTAL PROTEIN 6.7 G/DL (6.4-8.2); eGFR 86 ML/MIN
[2017-05-11] MEDS ORDERED: levoFLOXACIN-Levaquin 750MG/D5 150 ML IV ONE (13:20)
[2017-05-11] MEDS ORDERED: mag hydrox/Alum hydrox/simeth 30ml oral suspension PO PRN (16:10)
[2017-05-11] MEDS ORDERED: magnesium hydroxide 30ml (MOM) UD suspension PO PRN (16:10)
[2017-05-11] MEDS ORDERED: acetaminophen 325mg tablet PO PRN (16:10)
[2017-05-11] MEDS ORDERED: ondansetron/PF 4mg/2ml inj IV PRN (16:10)
[2017-05-11 18:01] VITALS: BP 120/70
[2017-05-11] MEDS ORDERED: glucagon, human recombinant 1mg kit SUBCUT PRN (18:20)
[2017-05-11] MEDS ORDERED: insulin Lispro (HumaLOG) vial - multi-dose SQ SCH (18:20)
[2017-05-11] MEDS ORDERED: dextrose ORAL solution 15 GM/59 ML bottle PO PRN ×2 (18:20)
[2017-05-11] MEDS ORDERED: dextrose 50%-water 50ml dispensing syringe IV PRN ×2 (18:20)
[2017-05-11] MEDS ORDERED: predniSONE 20 mg tablet PO ONE (18:20)
[2017-05-11] MEDS ORDERED: MESSAGE TO PHARMACY PO ONE (18:20)
[2017-05-11] MEDS ORDERED: ipratropium/albuterol 3ml nebule IH PRN (18:25)
[2017-05-11 19:00] VITALS: BP 111/68
[2017-05-11] MEDS: methylPREDNISolone sod succ 125mg/2ml vial IV SCH (20:00)
[2017-05-11] MEDS ORDERED: insulin glargine (Lantus) pen - multi-dose SQ SCH (21:00)
[2017-05-11] MEDS: ipratropium/albuterol 3ml nebule IH PRN (23:17)
[2017-05-11] MEDS ORDERED: QUETIAPINE 200 MG TAB.SR.24H PO SCH (23:25)
[2017-05-11] MEDS ORDERED: LORazepam 0.5 MG tablet PO PRN (23:25)
[2017-05-11] MEDS ORDERED: guaiFENesin 200 MG/10 ML oral syrup UD cup PO PRN (23:30)
[2017-05-12] VITALS: BP 111/68
[2017-05-12] MEDS ORDERED: QUEtiapine 25mg tablet PO SCH (00:15)
[2017-05-12] MEDS: methylPREDNISolone sod succ 125mg/2ml vial IV SCH ×3 (02:33→14:00)
[2017-05-12] MEDS: ipratropium/albuterol 3ml nebule IH PRN ×3 (03:21→15:12)
[2017-05-12 07:38] VITALS: BP 106/64
[2017-05-12] MEDS ORDERED: predniSONE 20 mg tablet PO SCH (08:00)
[2017-05-12 12:11] VITALS: BP 127/65
[2017-05-12] MEDS ORDERED: levoFLOXACIN-Levaquin 750MG/D5 150 ML IV SCH (14:00)
== END 2017-05-12 15:32 | disposition home or self-care (01) | DRG 189 ==
LOC: ER 09:13 → ED HOLD 16:09 → SUR 3N 17:48
PROVIDERS: ADMIT Internal Medicine; ATTEND Internal Medicine
DX: J96.21 Acute and chronic respiratory failure with hypoxia (principal); E87.2 Acidosis; J44.0 Chronic obstructive pulmonary disease with (acute) lower respiratory infection; J44.1 Chronic obstructive pulmonary disease with (acute) exacerbation; E11.9 Type 2 diabetes mellitus without complications; E78.00 Pure hypercholesterolemia, unspecified; F32.9 Major depressive disorder, single episode, unspecified; F41.9 Anxiety disorder, unspecified; G89.29 Other chronic pain; M54.9 Dorsalgia, unspecified; R49.0 Dysphonia; Z60.2 Problems related to living alone; J22 Unspecified acute lower respiratory infection; K21.9 Gastro-esophageal reflux disease without esophagitis; Z88.1 Allergy status to other antibiotic agents; Z79.82 Long term (current) use of aspirin; Z79.84 Long term (current) use of oral hypoglycemic drugs; Z79.899 Other long term (current) drug therapy; Z80.9 Family history of malignant neoplasm, unspecified
CPT/HCPCS: 36415; 71045; 80053; 82948; 83036; 83605; 83880; 85025; 87040; 87070; 93005; 94640; 94760; 96365; 96375; 99285; J1815; J1956; J2930; J7030; J7512

== ENCOUNTER 2017-06-17 16:47 | Emergency (ER) | payer MEDICARE, MEDICAID ==
[~2017-06-17] VITALS: Ht 170.2 cm; Wt 82.0 kg
[2017-06-17] MEDS ORDERED: dexamethasone sod phosphate 10mg/ml inj IM STA (19:10)
[2017-06-17] MEDS ORDERED: LORazepam 1 MG tablet PO ONE (19:15)
[2017-06-17] MEDS ORDERED: benzonatate 100mg capsule PO ONE (19:20)
[2017-06-17 20:10] VITALS: BP 121/75
== END 2017-06-17 20:18 | disposition home or self-care (01) ==
LOC: ER 16:48
DX: K21.9 Gastro-esophageal reflux disease without esophagitis (principal); R05 Cough; J44.9 Chronic obstructive pulmonary disease, unspecified; G89.29 Other chronic pain; E11.9 Type 2 diabetes mellitus without complications; E78.00 Pure hypercholesterolemia, unspecified; Z88.1 Allergy status to other antibiotic agents; Z79.82 Long term (current) use of aspirin; Z79.84 Long term (current) use of oral hypoglycemic drugs; Z79.899 Other long term (current) drug therapy; Z60.2 Problems related to living alone
CPT/HCPCS: 71045; 93005; 96372; 99284; J1100

== ENCOUNTER 2017-08-08 07:40 | Emergency (ER) | payer MEDICARE, MEDICAID ==
[~2017-08-08] VITALS: Ht 170.2 cm; Wt 81.0 kg
[2017-08-08] MEDS ORDERED: ketorolac trometh inj. 60 MG/2 ML VIAL IM ONE (08:20)
[2017-08-08 08:33] LABS: BASOPHILS % (AUTO) 0.4 % (0-1); EOSINOPHILS # (AUTO) 0.1 X10'3 (0-0.9); EOSINOPHILS % (AUTO) 1.5 % (0-6); HEMATOCRIT 39.5 % (35.0-45.0); HEMOGLOBIN 12.9 g/dl (12.0-16.0); LYMPHOCYTES # (AUTO) 2.3 X10'3 (1.1-4.8); LYMPHOCYTES % (AUTO) 26.6 % (21-51); MEAN CORPUSCULAR HEMOGLOBIN 27.2 PG (27.0-31.0); MEAN CORPUSCULAR HGB CONC 32.7 % (33.0-36.5); MEAN CORPUSCULAR VOLUME 83.1 FL (78-98); MONOCYTES # (AUTO) 0.8 X10'3 (0-0.9); MONOCYTES % (AUTO) 9.7 % (2-12); NEUTROPHILS # (AUTO) 5.4 X10'3 (1.8-7.7); NEUTROPHILS % (AUTO) 61.8 % (42-75); PLATELET COUNT 336 X10'3 (140-440); RED BLOOD COUNT 4.75 X10'6 (4.20-5.60); RED CELL DISTRIBUTION WIDTH 16.3 % (11.5-14.5); WHITE BLOOD COUNT 8.7 X10'3 (4.5-11.0)
[2017-08-08 08:37] VITALS: BP 123/80
[2017-08-08 08:42] LABS: CLARITY,URINE SLIGHTLY CLOUDY (Clear); COLOR,URINE YELLOW (Yellow); GLUCOSE, URINE NEGATIVE (Neg); KETONES,URINE TRACE mg/dl (Neg); LEUKOCYTE ESTERASE ,URINE NEGATIVE (Neg); NITRITES, URINE NEGATIVE (Neg); OCCULT BLOOD,URINE NEGATIVE (Neg); PROTEIN,URINE TRACE mg/dl (Neg); UROBILINOGEN,URINE 0.2 E.U/dL (0.2-1.0)
[2017-08-08 08:49] LABS: UA COLLECTION TYPE CLN CATCH MIDSTREAM
[2017-08-08 08:51] LABS: BACTERIA,URINE 2+ /HPF (Neg); MUCUS STRANDS MODERATE /LPF (Neg); RBC,URINE 0-2 /HPF (0-2); SQUAMOUS EPITHELIAL CELL,UR MODERATE /LPF (FEW)
[2017-08-08 08:51] LABS: ALANINE AMINOTRANSFERASE 26 U/L (12-78); ALBUMIN 3.9 G/DL (3.4-5.0); ALKALINE PHOSPHATASE 48 IU/L (46-116); ANION GAP 7 (8-16); ASPARTATE AMINO TRANSFERASE 12 U/L (10-37); BILIRUBIN,TOTAL 0.4 MG/DL (0.1-1.0); BLOOD UREA NITROGEN 12 MG/DL (7-18); BUN/CREATININE RATIO 15.6 (6.6-38.0); CALCIUM 9.9 MG/DL (8.5-10.1); CHLORIDE 101 MMOL/L (99-107); CREATININE 0.77 MG/DL (0.40-0.90); GLUCOSE 93 MG/DL (70-104); POTASSIUM 4.4 MMOL/L (3.5-5.1); SODIUM 141 MMOL/L (135-145); TOTAL CARBON DIOXIDE 32.9 MMOL/L (24-32); TOTAL PROTEIN 7.7 G/DL (6.4-8.2); eGFR 77 ML/MIN
[2017-08-08 08:56] LABS: URINE AMPHETAMINE SCREEN POSITIVE (Neg); URINE BARBITUATE SCREEN NEGATIVE (Neg); URINE BENZODIAZEPINES SCREEN NEGATIVE (Neg); URINE CANNABINOID SCREEN NEGATIVE (Neg); URINE COCAINE SCREEN NEGATIVE (Neg); URINE METHADONE SCREEN NEGATIVE (Neg); URINE OPIATE SCREEN NEGATIVE (Neg); URINE PHENCYCLIDINE SCREEN NEGATIVE (Neg)
[2017-08-08 08:57] LABS: LIPASE 140 U/L (73-393); MAGNESIUM 1.8 MG/DL (1.5-2.4)
[2017-08-08] MEDS ORDERED: triamcinolone acetonide 40mg/ml inj IM ONE (09:05)
== END 2017-08-08 09:42 | disposition home or self-care (01) ==
LOC: ER 07:42
DX: G89.29 Other chronic pain (principal); M54.5 Low back pain; F15.10 Other stimulant abuse, uncomplicated; E78.00 Pure hypercholesterolemia, unspecified; J44.9 Chronic obstructive pulmonary disease, unspecified; E11.9 Type 2 diabetes mellitus without complications; K21.9 Gastro-esophageal reflux disease without esophagitis; Z60.2 Problems related to living alone; Z79.82 Long term (current) use of aspirin; Z79.899 Other long term (current) drug therapy; Z88.8 Allergy status to other drugs, medicaments and biological substances; Z79.84 Long term (current) use of oral hypoglycemic drugs
CPT/HCPCS: 36415; 71045; 80053; 80305; 81001; 83690; 83735; 83880; 84484; 85025; 87088; 93005; 96372; 99285; J1885; J3301

== ENCOUNTER 2017-09-10 12:09 | Emergency (ER) | payer MEDICARE, MEDICAID ==
[~2017-09-10] VITALS: Ht 170.2 cm; Wt 63.0 kg
[2017-09-10 12:14] VITALS: BP 116/92
[2017-09-10 12:46] LABS: BASOPHILS % (AUTO) 0.4 % (0-1); EOSINOPHILS # (AUTO) 0.1 X10'3 (0-0.9); EOSINOPHILS % (AUTO) 1.7 % (0-6); HEMATOCRIT 36.3 % (35.0-45.0); LYMPHOCYTES # (AUTO) 1.7 X10'3 (1.1-4.8); LYMPHOCYTES % (AUTO) 28.5 % (21-51); MEAN CORPUSCULAR HEMOGLOBIN 27.2 PG (27.0-31.0); MEAN CORPUSCULAR HGB CONC 33.1 % (33.0-36.5); MEAN CORPUSCULAR VOLUME 82.2 FL (78-98); MEAN PLATELET VOLUME 7.5 FL (7.4-10.4); MONOCYTES # (AUTO) 0.6 X10'3 (0-0.9); MONOCYTES % (AUTO) 9.4 % (2-12); NEUTROPHILS # (AUTO) 3.7 X10'3 (1.8-7.7); PLATELET COUNT 236 X10'3 (140-440); RED BLOOD COUNT 4.41 X10'6 (4.20-5.60); RED CELL DISTRIBUTION WIDTH 18.1 % (11.5-14.5); WHITE BLOOD COUNT 6.1 X10'3 (4.5-11.0)
[2017-09-10 13:00] LABS: ALANINE AMINOTRANSFERASE 17 U/L (12-78); ALBUMIN 3.8 G/DL (3.4-5.0); ALKALINE PHOSPHATASE 76 IU/L (46-116); ANION GAP 9 (8-16); ASPARTATE AMINO TRANSFERASE 11 U/L (10-37); BILIRUBIN,TOTAL 0.3 MG/DL (0.1-1.0); BLOOD UREA NITROGEN 10 MG/DL (7-18); BUN/CREATININE RATIO 12.3 (6.6-38.0); CALCIUM 9.4 MG/DL (8.5-10.1); CHLORIDE 103 MMOL/L (99-107); CREATININE 0.81 MG/DL (0.40-0.90); GLUCOSE 101 MG/DL (70-104); POTASSIUM 4.4 MMOL/L (3.5-5.1); SODIUM 140 MMOL/L (135-145); TOTAL CARBON DIOXIDE 28.2 MMOL/L (24-32); TOTAL PROTEIN 7.5 G/DL (6.4-8.2); eGFR 73 ML/MIN
== END 2017-09-10 17:16 | disposition left against medical advice (07) ==
LOC: ER 12:09
DX: R06.00 Dyspnea, unspecified (principal); Z53.21 Procedure and treatment not carried out due to patient leaving prior to being seen by health care provider
CPT/HCPCS: 36415; 71046; 80053; 83605; 85025; 87040

== ENCOUNTER 2017-10-08 08:07 | Emergency (ER) | payer MEDICARE, MEDICAID ==
[~2017-10-08] VITALS: Ht 170.2 cm; Wt 76.0 kg
[2017-10-08 09:08] VITALS: BP 123/87
[2017-10-08] MEDS ORDERED: ketorolac tromethamine 15mg/ml inj. IM ONE (09:45)
[2017-10-08] MEDS ORDERED: METH-360 PO (09:50)
[2017-10-08] MEDS ORDERED: NAPR-56 PO (09:50)
== END 2017-10-08 10:01 | disposition home or self-care (01) ==
LOC: ER 08:08
DX: G89.29 Other chronic pain (principal); M54.5 Low back pain; M25.561 Pain in right knee; E78.00 Pure hypercholesterolemia, unspecified; J44.9 Chronic obstructive pulmonary disease, unspecified; K21.9 Gastro-esophageal reflux disease without esophagitis; E11.9 Type 2 diabetes mellitus without complications; Z60.2 Problems related to living alone; Z88.8 Allergy status to other drugs, medicaments and biological substances; Z79.82 Long term (current) use of aspirin; Z79.84 Long term (current) use of oral hypoglycemic drugs; Z79.899 Other long term (current) drug therapy; Z87.891 Personal history of nicotine dependence
CPT/HCPCS: 29505; 96372; 99283; J1885

== ENCOUNTER 2017-11-18 10:09 | Emergency (ER) | payer MEDICARE, MEDICAID ==
[~2017-11-18] VITALS: Ht 170.2 cm; Wt 81.0 kg
[~2017-11-18 10:09] MED LIST changes: -IPRA3AMP IH; +IPRA3AMP31 IH; +METH-360 PO
[2017-11-18 10:54] LABS: BASOPHILS % (AUTO) 0.5 % (0-1); EOSINOPHILS # (AUTO) 0.1 X10'3 (0-0.9); EOSINOPHILS % (AUTO) 0.9 % (0-6); HEMATOCRIT 33.6 % (35.0-45.0); HEMOGLOBIN 10.9 g/dl (12.0-16.0); LYMPHOCYTES # (AUTO) 1.3 X10'3 (1.1-4.8); MEAN CORPUSCULAR HEMOGLOBIN 27.9 PG (27.0-31.0); MEAN CORPUSCULAR HGB CONC 32.6 % (33.0-36.5); MEAN CORPUSCULAR VOLUME 85.6 FL (78-98); MONOCYTES # (AUTO) 0.7 X10'3 (0-0.9); MONOCYTES % (AUTO) 8.7 % (2-12); NEUTROPHILS # (AUTO) 6.1 X10'3 (1.8-7.7); NEUTROPHILS % (AUTO) 73.9 % (42-75); PLATELET COUNT 260 X10'3 (140-440); RED BLOOD COUNT 3.92 X10'6 (4.20-5.60); WHITE BLOOD COUNT 8.2 X10'3 (4.5-11.0)
[2017-11-18 11:09] LABS: ALANINE AMINOTRANSFERASE 19 U/L (12-78); ALBUMIN 3.3 G/DL (3.4-5.0); ALBUMIN/GLOBULIN RATIO 0.9 (1.1-1.5); ALKALINE PHOSPHATASE 53 IU/L (46-116); ANION GAP 6 (8-16); ASPARTATE AMINO TRANSFERASE 13 U/L (10-37); BILIRUBIN,TOTAL 0.4 MG/DL (0.1-1.0); BLOOD UREA NITROGEN 10 MG/DL (7-18); BUN/CREATININE RATIO 12.5 (6.6-38.0); CALCIUM 9.3 MG/DL (8.5-10.1); CHLORIDE 101 MMOL/L (99-107); GLUCOSE 114 MG/DL (70-104); SODIUM 138 MMOL/L (135-145); TOTAL CARBON DIOXIDE 30.8 MMOL/L (24-32); TOTAL PROTEIN 6.8 G/DL (6.4-8.2); eGFR 74 ML/MIN
[2017-11-18] MEDS ORDERED: AZIT250T83 PO (11:13)
[2017-11-18] MEDS ORDERED: BENZ-16 PO (11:13)
[2017-11-18] MEDS ORDERED: PRED10TA23 PO (11:13)
[2017-11-18 11:36] VITALS: BP 114/68
== END 2017-11-18 11:38 | disposition home or self-care (01) ==
LOC: ER 10:10
DX: J18.1 Lobar pneumonia, unspecified organism (principal); E78.00 Pure hypercholesterolemia, unspecified; J44.9 Chronic obstructive pulmonary disease, unspecified; K21.9 Gastro-esophageal reflux disease without esophagitis; E11.9 Type 2 diabetes mellitus without complications; G89.29 Other chronic pain; Z88.1 Allergy status to other antibiotic agents; Z88.3 Allergy status to other anti-infective agents; Z79.82 Long term (current) use of aspirin; Z79.899 Other long term (current) drug therapy
CPT/HCPCS: 36415; 71046; 80053; 83605; 85025; 87040; 99285

== ENCOUNTER 2018-01-14 08:52 | Emergency (ER) | payer MEDICARE, MEDICAID ==
[~2018-01-14] VITALS: Ht 170.2 cm; Wt 77.0 kg
[2018-01-14 09:21] LABS: BASOPHILS % (AUTO) 0.3 % (0-1); EOSINOPHILS # (AUTO) 0.2 X10'3 (0-0.9); HEMATOCRIT 38.5 % (35.0-45.0); HEMOGLOBIN 12.6 g/dl (12.0-16.0); LYMPHOCYTES % (AUTO) 16.6 % (21-51); MEAN CORPUSCULAR HEMOGLOBIN 28.1 PG (27.0-31.0); MEAN CORPUSCULAR HGB CONC 32.6 % (33.0-36.5); MEAN CORPUSCULAR VOLUME 86.3 FL (78-98); MEAN PLATELET VOLUME 7.1 FL (7.4-10.4); MONOCYTES # (AUTO) 0.8 X10'3 (0-0.9); MONOCYTES % (AUTO) 6.7 % (2-12); NEUTROPHILS # (AUTO) 8.9 X10'3 (1.8-7.7); NEUTROPHILS % (AUTO) 74.4 % (42-75); PLATELET COUNT 295 X10'3 (140-440); RED BLOOD COUNT 4.46 X10'6 (4.20-5.60); RED CELL DISTRIBUTION WIDTH 16.1 % (11.5-14.5); WHITE BLOOD COUNT 11.9 X10'3 (4.5-11.0)
[2018-01-14 09:43] LABS: ALANINE AMINOTRANSFERASE 23 U/L (12-78); ALBUMIN 3.7 G/DL (3.4-5.0); ALBUMIN/GLOBULIN RATIO 1.1 (1.1-1.5); ALKALINE PHOSPHATASE 66 IU/L (46-116); ANION GAP 8 (8-16); ASPARTATE AMINO TRANSFERASE 11 U/L (10-37); BILIRUBIN,TOTAL 0.4 MG/DL (0.1-1.0); BLOOD UREA NITROGEN 13 MG/DL (7-18); BUN/CREATININE RATIO 17.3 (6.6-38.0); CALCIUM 9.6 MG/DL (8.5-10.1); CHLORIDE 101 MMOL/L (99-107); CREATININE 0.75 MG/DL (0.40-0.90); GLUCOSE 94 MG/DL (70-104); POTASSIUM 4.4 MMOL/L (3.5-5.1); SODIUM 139 MMOL/L (135-145); TOTAL CARBON DIOXIDE 29.6 MMOL/L (24-32); TOTAL PROTEIN 7.2 G/DL (6.4-8.2); eGFR 80 ML/MIN
[2018-01-14 09:48] LABS: PARTIAL THROMBOPLASTIN TIME 26 SECONDS (22-32); PROTHROMBIN TIME 9.8 SECONDS (9.0-12.0)
[2018-01-14] MEDS ORDERED: predniSONE 20 mg tablet PO ONE (09:55)
[2018-01-14] MEDS ORDERED: ipratropium/albuterol 3ml nebule NEB ONE (09:55)
[2018-01-14] MEDS ORDERED: BENZ-16 PO (10:40)
[2018-01-14] MEDS ORDERED: LEVO750T21 PO (10:40)
[2018-01-14] MEDS ORDERED: PRED10TA23 PO (10:40)
[2018-01-14] MEDS ORDERED: levoFLOXACIN 750MG TABLET PO ONE (10:40)
[2018-01-14] MEDS ORDERED: benzonatate 100mg capsule PO ONE (10:40)
[2018-01-14 10:45] VITALS: BP 92/70
== END 2018-01-14 10:51 | disposition home or self-care (01) ==
LOC: ER 08:52
DX: J44.1 Chronic obstructive pulmonary disease with (acute) exacerbation (principal); J18.9 Pneumonia, unspecified organism; K21.9 Gastro-esophageal reflux disease without esophagitis; E78.00 Pure hypercholesterolemia, unspecified; E11.9 Type 2 diabetes mellitus without complications; G89.29 Other chronic pain; Z88.1 Allergy status to other antibiotic agents; Z79.82 Long term (current) use of aspirin; Z79.84 Long term (current) use of oral hypoglycemic drugs; Z79.2 Long term (current) use of antibiotics; Z79.899 Other long term (current) drug therapy; Z60.2 Problems related to living alone
CPT/HCPCS: 36415; 71045; 80053; 84484; 85025; 85610; 85730; 93005; 94640; 94760; 99285; J7512

== ENCOUNTER 2018-02-28 08:30 | Emergency (ER) | payer MEDICARE, MEDICAID ==
[~2018-02-28] VITALS: Ht 170.2 cm; Wt 77.0 kg
[~2018-02-28 08:30] MED LIST changes: +BENZ-16 PO
[2018-02-28 08:33] VITALS: BP 109/58
[2018-02-28 09:18] LABS: BASOPHILS % (AUTO) 0 % (0-1); EOSINOPHILS % (AUTO) 0 % (0-6); HEMATOCRIT 36.4 % (35.0-45.0); HEMOGLOBIN 11.8 g/dl (12.0-16.0); LYMPHOCYTES # (AUTO) 0.2 X10'3 (1.1-4.8); LYMPHOCYTES % (AUTO) 2.4 % (21-51); MEAN CORPUSCULAR HEMOGLOBIN 27.2 PG (27.0-31.0); MEAN CORPUSCULAR HGB CONC 32.2 % (33.0-36.5); MEAN CORPUSCULAR VOLUME 84.4 FL (78-98); MEAN PLATELET VOLUME 6.9 FL (7.4-10.4); MONOCYTES # (AUTO) 0.5 X10'3 (0-0.9); MONOCYTES % (AUTO) 5.5 % (2-12); NEUTROPHILS % (AUTO) 92.1 % (42-75); PLATELET COUNT 282 X10'3 (140-440); RED BLOOD COUNT 4.32 X10'6 (4.20-5.60); RED CELL DISTRIBUTION WIDTH 15.7 % (11.5-14.5); WHITE BLOOD COUNT 8.7 X10'3 (4.5-11.0)
[2018-02-28] MEDS ORDERED: AMOX-580 PO (09:31)
[2018-02-28 09:37] LABS: ALANINE AMINOTRANSFERASE 18 U/L (12-78); ALBUMIN 3.3 G/DL (3.4-5.0); ALBUMIN/GLOBULIN RATIO 0.8 (1.1-1.5); ALKALINE PHOSPHATASE 54 IU/L (46-116); ANION GAP 11 (8-16); ASPARTATE AMINO TRANSFERASE 11 U/L (10-37); BILIRUBIN,TOTAL 0.2 MG/DL (0.1-1.0); BLOOD UREA NITROGEN 14 MG/DL (7-18); BUN/CREATININE RATIO 18.7 (6.6-38.0); CALCIUM 9.6 MG/DL (8.5-10.1); CHLORIDE 96 MMOL/L (99-107); CREATININE 0.75 MG/DL (0.40-0.90); GLUCOSE 99 MG/DL (70-104); POTASSIUM 3.5 MMOL/L (3.5-5.1); SODIUM 135 MMOL/L (135-145); TOTAL CARBON DIOXIDE 28.3 MMOL/L (24-32); TOTAL PROTEIN 7.4 G/DL (6.4-8.2); eGFR 80 ML/MIN
[2018-02-28 09:47] LABS: ANISOCYTOSIS 1+; MICROCYTOSIS 1+; PLATELET ESTIMATE NORMAL; TOTAL CELLS COUNTED 100
[2018-02-28] MEDS ORDERED: ketorolac trometh inj. 60 MG/2 ML VIAL IM ONE (10:45)
== END 2018-02-28 11:09 | disposition home or self-care (01) ==
LOC: ER 08:30
DX: J18.9 Pneumonia, unspecified organism (principal); J44.9 Chronic obstructive pulmonary disease, unspecified; E78.00 Pure hypercholesterolemia, unspecified; K21.9 Gastro-esophageal reflux disease without esophagitis; E11.9 Type 2 diabetes mellitus without complications; G89.29 Other chronic pain; Z88.1 Allergy status to other antibiotic agents; Z79.82 Long term (current) use of aspirin; Z79.84 Long term (current) use of oral hypoglycemic drugs; Z79.899 Other long term (current) drug therapy; Z60.2 Problems related to living alone
CPT/HCPCS: 36415; 71046; 80053; 85025; 96372; 99284; J1885

== ENCOUNTER 2018-08-07 09:05 | Emergency (ER) | payer MEDICARE, MEDICAID ==
[~2018-08-07] VITALS: Ht 167.6 cm; Wt 75.0 kg
[~2018-08-07 09:05] MED LIST changes: -BENZ-16 PO
[2018-08-07 09:59] LABS: BASOPHILS # (AUTO) 0.1 X10'3 (0-0.2); BASOPHILS % (AUTO) 0.6 % (0-1); EOSINOPHILS % (AUTO) 0 % (0-6); HEMATOCRIT 35.5 % (35.0-45.0); HEMOGLOBIN 11.3 g/dl (12.0-16.0); LYMPHOCYTES # (AUTO) 1.2 X10'3 (1.1-4.8); LYMPHOCYTES % (AUTO) 7.3 % (21-51); MEAN CORPUSCULAR HEMOGLOBIN 25.4 PG (27.0-31.0); MEAN CORPUSCULAR HGB CONC 31.7 g/dL (33.0-36.5); MEAN CORPUSCULAR VOLUME 79.9 FL (78-98); MEAN PLATELET VOLUME 6.7 FL (7.4-10.4); MONOCYTES # (AUTO) 1.2 X10'3 (0-0.9); MONOCYTES % (AUTO) 7.5 % (2-12); NEUTROPHILS # (AUTO) 13.7 X10'3 (1.8-7.7); NEUTROPHILS % (AUTO) 84.6 % (42-75); PLATELET COUNT 501 X10'3 (140-440); RED BLOOD COUNT 4.45 X10'6 (4.20-5.60); RED CELL DISTRIBUTION WIDTH 18.1 % (11.5-14.5); WHITE BLOOD COUNT 16.1 X10'3 (4.5-11.0)
[2018-08-07] MEDS ORDERED: ipratropium/albuterol 3ml nebule NEB ONE (10:00)
[2018-08-07] MEDS ORDERED: methylPREDNISolone sod succ 125mg/2ml vial IV ONE (10:00)
[2018-08-07] MEDS ORDERED: CefTRIAXone 2gm/D5W 50ml 50 ML IV ONE (10:00)
[2018-08-07 10:09] LABS: ALANINE AMINOTRANSFERASE 15 U/L (12-78); ALBUMIN 2.9 G/DL (3.4-5.0); ALBUMIN/GLOBULIN RATIO 0.5 (1.1-1.5); ALKALINE PHOSPHATASE 47 IU/L (46-116); ANION GAP 9 (8-16); BILIRUBIN,TOTAL 0.4 MG/DL (0.1-1.0); BLOOD UREA NITROGEN 12 MG/DL (7-18); BUN/CREATININE RATIO 16.2 (6.6-38.0); CALCIUM 9.8 MG/DL (8.5-10.1); CHLORIDE 97 MMOL/L (99-107); CREATININE 0.74 MG/DL (0.40-0.90); GLUCOSE 165 MG/DL (70-104); SODIUM 134 MMOL/L (135-145); TOTAL CARBON DIOXIDE 27.8 MMOL/L (24-32); TOTAL PROTEIN 8.2 G/DL (6.4-8.2); eGFR 81 ML/MIN
[2018-08-07 10:10] LABS: ASPARTATE AMINO TRANSFERASE 17 U/L (10-37); POTASSIUM 3.8 MMOL/L (3.5-5.1)
[2018-08-07] MEDS ORDERED: PRED20TA PO (10:20)
[2018-08-07] MEDS ORDERED: CEPH500C5 PO (10:20)
[2018-08-07] MEDS ORDERED: ALBU6.7H INH (10:34)
--- NOTE | 2018-08-07 10:55 | NUR ---
md was in room, pt does not wish to be admitted to hospital
[2018-08-07 11:28] VITALS: BP 98/70
== END 2018-08-07 11:29 | disposition home or self-care (01) ==
LOC: ER 09:06
DX: J18.9 Pneumonia, unspecified organism (principal); J44.9 Chronic obstructive pulmonary disease, unspecified; E78.00 Pure hypercholesterolemia, unspecified; K21.9 Gastro-esophageal reflux disease without esophagitis; E11.9 Type 2 diabetes mellitus without complications; G89.29 Other chronic pain; Z88.1 Allergy status to other antibiotic agents; Z79.82 Long term (current) use of aspirin; Z79.899 Other long term (current) drug therapy
CPT/HCPCS: 36415; 71046; 80053; 85025; 87040; 93005; 94640; 94760; 96365; 96375; 99284; J0696; J2930

== ENCOUNTER 2018-10-23 08:24 | Emergency (ER) | payer MEDICARE, MEDICAID ==
[~2018-10-23] VITALS: Ht 170.2 cm; Wt 74.1 kg
[~2018-10-23 08:24] MED LIST changes: +ALBU6.7H9 INH; +CEPH500C5 PO; -CYAN-19 PO; +CYAN-51 PO; +OMEP40CA13 PO; -OMEP40CA37 PO
[2018-10-23] MEDS ORDERED: racepinephrine 11.25mg/0.5ml nebule IH ONE (08:50)
[2018-10-23] MEDS ORDERED: methylPREDNISolone sod succ 125mg/2ml vial IV ONE (08:50)
[2018-10-23] MEDS ORDERED: ipratropium/albuterol 3ml nebule NEB ONE (08:50)
[2018-10-23 09:41] LABS: BASOPHILS # (AUTO) 0.1 X10'3 (0-0.2); BASOPHILS % (AUTO) 0.8 % (0-1); EOSINOPHILS # (AUTO) 0.1 X10'3 (0-0.9); HEMATOCRIT 37.8 % (35.0-45.0); HEMOGLOBIN 12.1 g/dl (12.0-16.0); LYMPHOCYTES # (AUTO) 3.3 X10'3 (1.1-4.8); LYMPHOCYTES % (AUTO) 33.7 % (21-51); MEAN CORPUSCULAR HEMOGLOBIN 26.4 PG (27.0-31.0); MEAN CORPUSCULAR HGB CONC 31.9 g/dL (33.0-36.5); MEAN CORPUSCULAR VOLUME 82.7 FL (78-98); MEAN PLATELET VOLUME 6.8 FL (7.4-10.4); MONOCYTES # (AUTO) 1.1 X10'3 (0-0.9); MONOCYTES % (AUTO) 11.2 % (2-12); NEUTROPHILS # (AUTO) 5.2 X10'3 (1.8-7.7); NEUTROPHILS % (AUTO) 53.3 % (42-75); PLATELET COUNT 291 X10'3 (140-440); RED BLOOD COUNT 4.57 X10'6 (4.20-5.60); RED CELL DISTRIBUTION WIDTH 18.6 % (11.5-14.5); WHITE BLOOD COUNT 9.7 X10'3 (4.5-11.0)
[2018-10-23 10:13] LABS: ALANINE AMINOTRANSFERASE 25 U/L (12-78); ALBUMIN 3.6 G/DL (3.4-5.0); ALKALINE PHOSPHATASE 68 IU/L (46-116); ANION GAP 9 (8-16); ASPARTATE AMINO TRANSFERASE 7 U/L (10-37); BILIRUBIN,TOTAL 0.3 MG/DL (0.1-1.0); BLOOD UREA NITROGEN 15 MG/DL (7-18); BUN/CREATININE RATIO 18.1 (6.6-38.0); CALCIUM 9.2 MG/DL (8.5-10.1); CHLORIDE 104 MMOL/L (99-107); CREATININE 0.83 MG/DL (0.40-0.90); GLUCOSE 113 MG/DL (70-104); POTASSIUM 3.6 MMOL/L (3.5-5.1); SODIUM 143 MMOL/L (135-145); TOTAL CARBON DIOXIDE 30.2 MMOL/L (24-32); TOTAL PROTEIN 7.3 G/DL (6.4-8.2); eGFR 71 ML/MIN
[2018-10-23 10:23] LABS: CLARITY,URINE CLEAR (Clear); COLOR,URINE YELLOW (Yellow); GLUCOSE, URINE NEGATIVE (Neg); KETONES,URINE TRACE mg/dl (Neg); LEUKOCYTE ESTERASE ,URINE NEGATIVE (Neg); NITRITES, URINE NEGATIVE (Neg); OCCULT BLOOD,URINE NEGATIVE (Neg); PROTEIN,URINE 30 mg/dl (Neg); UROBILINOGEN,URINE 0.2 E.U/dL (0.2-1.0)
[2018-10-23 10:28] LABS: UA COLLECTION TYPE CLN CATCH MIDSTREAM
[2018-10-23 10:29] LABS: BACTERIA,URINE NONE SEEN /HPF (Neg); MUCUS STRANDS FEW /LPF (Neg); RBC,URINE NONE SEEN /HPF (0-2); SQUAMOUS EPITHELIAL CELL,UR NONE SEEN /LPF (FEW); WBC,URINE 0-4 /HPF (0-4)
[2018-10-23] MEDS ORDERED: AZIT250T83 PO (10:56)
[2018-10-23] MEDS ORDERED: PRED20TA PO (10:56)
[2018-10-23 11:11] VITALS: BP 124/82
== END 2018-10-23 11:14 | disposition home or self-care (01) ==
LOC: ER 08:25
DX: J44.1 Chronic obstructive pulmonary disease with (acute) exacerbation (principal); E78.00 Pure hypercholesterolemia, unspecified; J44.9 Chronic obstructive pulmonary disease, unspecified; K21.9 Gastro-esophageal reflux disease without esophagitis; E11.9 Type 2 diabetes mellitus without complications; G89.29 Other chronic pain; F41.9 Anxiety disorder, unspecified; F32.9 Major depressive disorder, single episode, unspecified; Z87.891 Personal history of nicotine dependence; Z88.1 Allergy status to other antibiotic agents; Z79.82 Long term (current) use of aspirin; Z79.2 Long term (current) use of antibiotics; Z79.84 Long term (current) use of oral hypoglycemic drugs; Z79.899 Other long term (current) drug therapy
CPT/HCPCS: 36415; 71045; 80053; 81001; 83605; 85025; 87040; 93005; 94640; 94760; 96374; 99284; J2930

== ENCOUNTER 2018-12-11 11:25 | Emergency (ER) | payer MEDICARE, MEDICAID ==
[~2018-12-11] VITALS: Ht 167.6 cm; Wt 68.2 kg
[2018-12-11] MEDS ORDERED: ipratropium/albuterol 3ml nebule NEB ONE (12:10)
[2018-12-11] MEDS ORDERED: predniSONE 20 mg tablet PO ONE (12:10)
[2018-12-11 12:26] LABS: BASOPHILS % (AUTO) 0.3 % (0-1); EOSINOPHILS % (AUTO) 0.2 % (0-6); HEMOGLOBIN 11.6 g/dl (12.0-16.0); LYMPHOCYTES # (AUTO) 1.1 X10'3 (1.1-4.8); LYMPHOCYTES % (AUTO) 8.8 % (21-51); MEAN CORPUSCULAR HEMOGLOBIN 26.1 PG (27.0-31.0); MEAN CORPUSCULAR HGB CONC 31.3 g/dL (33.0-36.5); MEAN CORPUSCULAR VOLUME 83.5 FL (78-98); MEAN PLATELET VOLUME 6.8 FL (7.4-10.4); MONOCYTES # (AUTO) 0.5 X10'3 (0-0.9); MONOCYTES % (AUTO) 4.1 % (2-12); NEUTROPHILS # (AUTO) 10.4 X10'3 (1.8-7.7); NEUTROPHILS % (AUTO) 86.6 % (42-75); PLATELET COUNT 337 X10'3 (140-440); RED BLOOD COUNT 4.43 X10'6 (4.20-5.60); RED CELL DISTRIBUTION WIDTH 16.3 % (11.5-14.5)
[2018-12-11 12:38] LABS: PARTIAL THROMBOPLASTIN TIME 24 SECONDS (22-32)
[2018-12-11 12:40] LABS: ALANINE AMINOTRANSFERASE 29 U/L (12-78); ALBUMIN 3.6 G/DL (3.4-5.0); ALKALINE PHOSPHATASE 55 IU/L (46-116); ANION GAP 12 (8-16); ASPARTATE AMINO TRANSFERASE 3 U/L (10-37); BILIRUBIN,TOTAL 0.4 MG/DL (0.1-1.0); BLOOD UREA NITROGEN 14 MG/DL (7-18); BUN/CREATININE RATIO 14.6 (6.6-38.0); CALCIUM 8.8 MG/DL (8.5-10.1); CHLORIDE 102 MMOL/L (99-107); CREATININE 0.96 MG/DL (0.40-0.90); GLUCOSE 132 MG/DL (70-104); POTASSIUM 4.1 MMOL/L (3.5-5.1); SODIUM 139 MMOL/L (135-145); TOTAL CARBON DIOXIDE 25.4 MMOL/L (24-32); TOTAL PROTEIN 7.1 G/DL (6.4-8.2); eGFR 60 ML/MIN
[2018-12-11] MEDS ORDERED: azithromycin 250mg tablet PO ONE (12:45)
[2018-12-11] MEDS ORDERED: PRED20TA PO (12:49)
[2018-12-11] MEDS ORDERED: AZIT-63 PO (12:49)
[2018-12-11 13:05] VITALS: BP 109/77
== END 2018-12-11 13:08 | disposition home or self-care (01) ==
LOC: ER 11:26
DX: J40 Bronchitis, not specified as acute or chronic (principal); J44.9 Chronic obstructive pulmonary disease, unspecified; E78.00 Pure hypercholesterolemia, unspecified; K21.9 Gastro-esophageal reflux disease without esophagitis; E11.9 Type 2 diabetes mellitus without complications; G89.29 Other chronic pain; F41.9 Anxiety disorder, unspecified; F32.9 Major depressive disorder, single episode, unspecified; F17.210 Nicotine dependence, cigarettes, uncomplicated; F10.99 Alcohol use, unspecified with unspecified alcohol-induced disorder; Z60.2 Problems related to living alone; Z88.1 Allergy status to other antibiotic agents; Z88.8 Allergy status to other drugs, medicaments and biological substances; Z79.84 Long term (current) use of oral hypoglycemic drugs; Z79.82 Long term (current) use of aspirin; Z79.899 Other long term (current) drug therapy; Y90.9 Presence of alcohol in blood, level not specified
CPT/HCPCS: 36415; 71045; 80053; 84484; 85025; 85610; 85730; 93005; 94640; 94760; 99284; J7512

== ENCOUNTER 2019-02-27 05:41 | Inpatient (IN) | payer MEDICARE, MEDICAID ==
[~2019-02-27] VITALS: Ht 172.7 cm; Wt 170.0 kg
[2019-02-27 06:27] LABS: BASOPHILS # (AUTO) 0.3 X10'3 (0-0.2); BASOPHILS % (AUTO) 1.6 % (0-1); EOSINOPHILS # (AUTO) 0.1 X10'3 (0-0.9); EOSINOPHILS % (AUTO) 0.6 % (0-6); HEMATOCRIT 34.8 % (35.0-45.0); HEMOGLOBIN 11.2 g/dl (12.0-16.0); LYMPHOCYTES # (AUTO) 0.7 X10'3 (1.1-4.8); LYMPHOCYTES % (AUTO) 4.3 % (21-51); MEAN CORPUSCULAR HEMOGLOBIN 26.9 PG (27.0-31.0); MONOCYTES # (AUTO) 0.5 X10'3 (0-0.9); NEUTROPHILS # (AUTO) 14.9 X10'3 (1.8-7.7); NEUTROPHILS % (AUTO) 90.5 % (42-75); PLATELET COUNT 294 X10'3 (140-440); RED BLOOD COUNT 4.15 X10'6 (4.20-5.60); RED CELL DISTRIBUTION WIDTH 16.5 % (11.5-14.5); WHITE BLOOD COUNT 16.4 X10'3 (4.5-11.0)
[2019-02-27] MEDS ORDERED: magnesium citrate 296ml oral solution PO ONE (06:40)
[2019-02-27] MEDS ORDERED: methylPREDNISolone sod succ 125mg/2ml vial IV ONE (06:40)
[2019-02-27] MEDS ORDERED: LORazepam 2 mg/ml vial IV ONE (06:40)
[2019-02-27] MEDS ORDERED: ipratropium/albuterol 3ml nebule NEB ONE (06:40)
[2019-02-27 06:41] LABS: PARTIAL THROMBOPLASTIN TIME 30 SECONDS (22-32)
[2019-02-27 06:44] LABS: ALANINE AMINOTRANSFERASE 15 U/L (12-78); ALBUMIN 3.1 G/DL (3.4-5.0); ALBUMIN/GLOBULIN RATIO 0.8 (1.1-1.5); ALKALINE PHOSPHATASE 38 IU/L (46-116); ANION GAP 8 (8-16); ASPARTATE AMINO TRANSFERASE 17 U/L (10-37); BILIRUBIN,TOTAL 0.7 MG/DL (0.1-1.0); BLOOD UREA NITROGEN 19 MG/DL (7-18); BUN/CREATININE RATIO 17.1 (6.6-38.0); CALCIUM 9.1 MG/DL (8.5-10.1); CHLORIDE 99 MMOL/L (99-107); CREATININE 1.11 MG/DL (0.40-0.90); GLUCOSE 100 MG/DL (70-104); POTASSIUM 3.6 MMOL/L (3.5-5.1); SODIUM 136 MMOL/L (135-145); TOTAL CARBON DIOXIDE 28.8 MMOL/L (24-32); eGFR 50 ML/MIN
[2019-02-27] MEDS ORDERED: azithromycin/NS 500mg/250ml 250 ML IV ONE (06:45)
[2019-02-27] MEDS ORDERED: CefTRIAXone 2gm/D5W 50ml 50 ML IV ONE (06:45)
[2019-02-27] MEDS ORDERED: normal saline 1000ML IV soln IVB ONE (06:45)
[2019-02-27 06:54] LABS: ANISOCYTOSIS 1+; PLATELET ESTIMATE NORMAL; TOTAL CELLS COUNTED 100
[2019-02-27 06:55] LABS: TOXIC GRANULATION 2+; TOXIC VACUOLATION 1+
[2019-02-27] MEDS ORDERED: normal saline 1000ml 1,000 ML IV ONE (07:15)
[2019-02-27] MEDS ORDERED: ipratropium/albuterol 3ml nebule NEB PRN (07:15)
[2019-02-27] MEDS ORDERED: magnesium 2GM in 50ml NS 50 ML IV PRN (07:15)
[2019-02-27] MEDS ORDERED: potassium Cl 20 mEq SR tablet PO PRN ×2 (07:15)
[2019-02-27] MEDS ORDERED: acetaminophen 325mg tablet PO PRN (07:15)
[2019-02-27] MEDS ORDERED: magnesium 4gm in 100ml NS 100 ML IV PRN (07:15)
[2019-02-27] MEDS ORDERED: magnesium Cl slow-release 64mg tablet PO PRN (07:15)
[2019-02-27] MEDS ORDERED: mag hydrox/Alum hydrox/simeth 30ml oral suspension PO PRN (07:15)
[2019-02-27] MEDS ORDERED: magnesium hydroxide 30ml (MOM) UD suspension PO PRN (07:15)
[2019-02-27] MEDS ORDERED: potassium CL 10mEq/100ml bag 100 ML IV PRN ×2 (07:15)
[2019-02-27] MEDS: K and/or MAG REPLACEMENT MC SCH ×2 (08:00→20:00)
[2019-02-27] MEDS ORDERED: RULOX (08:02)
[2019-02-27] MEDS ORDERED: GUAI600T45 PO (08:02)
[2019-02-27] MEDS ORDERED: CYCL1DRO OT (08:02)
[2019-02-27] MEDS ORDERED: DOCU-148 PO (08:02)
[2019-02-27] MEDS ORDERED: METO-292 PO (08:02)
[2019-02-27] MEDS ORDERED: TUMERIC CURCUMIN PO (08:02)
[2019-02-27] MEDS ORDERED: ASCO500C15 PO (08:02)
[2019-02-27] MEDS: enoxaparin 40mg/0.4ml syringe SQ SCH (08:29)
[2019-02-27] MEDS: lactobacillus rhamnosus 10,000 MMU CELLS/CAPSULE PO SCH ×2 (08:29→19:40)
--- NOTE | 2019-02-27 10:15 | NUR ---
Patient in room [facility]. I have received report from Vero ROWE from ED and had the opportunity to ask questions and assume patient care.
[2019-02-27 10:30] VITALS: BP 91/58
[2019-02-27] MEDS: ipratropium/albuterol 3ml nebule NEB SCH ×3 (10:44→19:20)
[2019-02-27 11:00] VITALS: BP 108/68
--- NOTE | 2019-02-27 13:50 | NUR ---
Spoke to Pt regarding her care, pt is upset because she has not gotten her meds home meds and she is due to take them. Pt was going over some personal medical hx and was upset when Ii Informed her that her A1C is 6.7. She was very upset because she was told by her Dr that she had he DM2 was well control. She likes to have cake and sweets on her tray. Also she has a lot of request regarding her meals. There were too many to write down, therefore A intelligence operations specialist referal was made. Spoke to Nelson in caft. to discuss her meal choices. They will make adjustment to her diet as necessary after he speak to her.
--- NOTE | 2019-02-27 16:00 | NUR ---
Nutrition consult: Pt has specific food requests for meals. JENELLE d/w RN regarding carb controlled diet addition per MD approval given hx T2DM w/ new A1C pending. Prior A1C <7. Pt seen by JENELLE and reports hx severe GERD and requests: no tomatoes/tomato products, gray peppers, red meats, or 'spicier sauces'. Pt requests lower fat butter/margarine and low fat milks w/ meals; dietary notified of pt preferences. Addendum: 02/27/19 at [address] Amended: Links added.
[2019-02-27] MEDS: acetaminophen 325mg tablet PO PRN (17:41)
[2019-02-27 18:00] VITALS: BP 102/57
--- NOTE | 2019-02-27 18:10 | NUR ---
Problems reprioritized. Patient report given, questions answered & plan of care reviewed with Arnold ROWE.
[2019-02-27] MEDS ORDERED: dextrose 50%-water 50ml dispensing syringe IV PRN ×2 (18:55)
[2019-02-27] MEDS ORDERED: glucagon, human recombinant 1mg kit SUBCUT PRN (18:55)
[2019-02-27] MEDS ORDERED: MESSAGE TO PHARMACY PO ONE (18:55)
[2019-02-27] MEDS ORDERED: dextrose ORAL solution 15 GM/59 ML bottle PO PRN ×2 (18:55)
--- NOTE | 2019-02-27 19:06 | NUR ---
Problems reprioritized. Patient report given, questions answered & plan of care reviewed with SOLEDAD Hale.
[2019-02-27] MEDS: insulin Lispro (HumaLOG) vial - multi-dose SQ SCH (19:33)
[2019-02-27] MEDS: cycloSPORINE 0.05% ophthalmic emulsion EACHEYE SCH (19:38)
[2019-02-27] MEDS: docusate sod 100mg capsule PO SCH (19:39)
[2019-02-27] MEDS: ascorbic acid 500mg tablet PO SCH (19:40)
[2019-02-27] MEDS: metoclopramide 10mg tablet PO SCH (19:40)
[2019-02-27] MEDS: guaiFENesin 200 MG/10 ML oral syrup UD cup PO PRN (19:42)
[2019-02-27] MEDS: QUEtiapine 25mg tablet PO SCH (19:42)
[2019-02-27] MEDS: guaiFENesin ER 600mg tablet PO SCH (20:59)
[2019-02-28] VITALS: BP 103/63
[2019-02-28] MEDS: guaiFENesin 200 MG/10 ML oral syrup UD cup PO PRN (04:28)
[2019-02-28 05:32] LABS: ALBUMIN 2.6 G/DL (3.4-5.0); ANION GAP 8 (8-16); BLOOD UREA NITROGEN 13 MG/DL (7-18); BUN/CREATININE RATIO 16.9 (6.6-38.0); CALCIUM 8.4 MG/DL (8.5-10.1); CHLORIDE 104 MMOL/L (99-107); CREATININE 0.77 MG/DL (0.40-0.90); GLUCOSE 94 MG/DL (70-104); MAGNESIUM 2.3 MG/DL (1.5-2.4); POTASSIUM 3.7 MMOL/L (3.5-5.1); SODIUM 138 MMOL/L (135-145); TOTAL CARBON DIOXIDE 25.9 MMOL/L (24-32); eGFR 77 ML/MIN
[2019-02-28 05:39] LABS: BASOPHILS # (AUTO) 0.1 X10'3 (0-0.2); BASOPHILS % (AUTO) 0.3 % (0-1); EOSINOPHILS % (AUTO) 0 % (0-6); HEMATOCRIT 30.4 % (35.0-45.0); HEMOGLOBIN 9.7 g/dl (12.0-16.0); LYMPHOCYTES # (AUTO) 0.8 X10'3 (1.1-4.8); LYMPHOCYTES % (AUTO) 5.2 % (21-51); MEAN CORPUSCULAR VOLUME 84.4 FL (78-98); MEAN PLATELET VOLUME 7.2 FL (7.4-10.4); MONOCYTES # (AUTO) 0.6 X10'3 (0-0.9); NEUTROPHILS # (AUTO) 13.5 X10'3 (1.8-7.7); NEUTROPHILS % (AUTO) 90.5 % (42-75); PLATELET COUNT 288 X10'3 (140-440); RED CELL DISTRIBUTION WIDTH 16.5 % (11.5-14.5); WHITE BLOOD COUNT 14.9 X10'3 (4.5-11.0)
--- NOTE | 2019-02-28 06:35 | NUR ---
Problems reprioritized. Patient report given, questions answered & plan of care reviewed with SOLEDAD Harris.
--- NOTE | 2019-02-28 06:45 | NUR ---
Patient in room [facility]. I have received report from Arnold ROWE and had the opportunity to ask questions and assume patient care.
[2019-02-28] MEDS: ipratropium/albuterol 3ml nebule NEB SCH ×6 (07:06→23:07)
[2019-02-28] MEDS: duloxetine 30mg CAPSULE.DR PO SCH (07:33)
[2019-02-28] MEDS: aspirin 81mg tablet.DR PO SCH (07:33)
[2019-02-28] MEDS: lactobacillus rhamnosus 10,000 MMU CELLS/CAPSULE PO SCH ×2 (07:34→19:58)
[2019-02-28] MEDS: guaiFENesin ER 600mg tablet PO SCH ×3 (07:35→20:08)
[2019-02-28] MEDS: docusate sod 100mg capsule PO SCH ×2 (07:36→19:58)
[2019-02-28] MEDS: metoclopramide 10mg tablet PO SCH ×2 (07:36→19:57)
[2019-02-28] MEDS: azithromycin 250mg tablet PO SCH (07:36)
[2019-02-28] MEDS: ascorbic acid 500mg tablet PO SCH ×2 (07:37→19:56)
[2019-02-28] MEDS: pantoprazole 40mg Tablet.DR PO SCH (07:37)
[2019-02-28] MEDS: QUEtiapine 25mg tablet PO SCH ×2 (07:38→19:58)
[2019-02-28] MEDS: cycloSPORINE 0.05% ophthalmic emulsion EACHEYE SCH ×2 (07:39→20:10)
[2019-02-28] MEDS: enoxaparin 40mg/0.4ml syringe SQ SCH (07:40)
[2019-02-28] MEDS: CefTRIAXone 2gm/D5W 50ml 50 ML IV SCH (07:43)
[2019-02-28] MEDS: atorvastatin 20mg tablet PO SCH (07:44)
[2019-02-28 07:56] VITALS: BP 109/73
[2019-02-28] MEDS: K and/or MAG REPLACEMENT MC SCH ×2 (08:00→20:00)
[2019-02-28] MEDS ORDERED: predniSONE 20 mg tablet PO SCH (08:00)
[2019-02-28] MEDS: insulin Lispro (HumaLOG) vial - multi-dose SQ SCH ×3 (08:07→19:53)
[2019-02-28 12:17] VITALS: BP 110/74
[2019-02-28] MEDS: methylPREDNISolone sod succ 125mg/2ml vial IV SCH ×2 (14:55→20:01)
[2019-02-28 18:00] VITALS: BP 138/79
--- NOTE | 2019-02-28 18:25 | NUR ---
Patient in room [facility]. I have received report from SOLEDAD Galo and had the opportunity to ask questions and assume patient care.
--- NOTE | 2019-02-28 19:11 | NUR ---
Problems reprioritized. Patient report given, questions answered & plan of care reviewed with Arnold ROWE.
[2019-02-28] MEDS ORDERED: insulin glargine (Lantus) pen - multi-dose SQ SCH (21:00)
[2019-03-01] MEDS: guaiFENesin 200 MG/10 ML oral syrup UD cup PO PRN (02:59)
[2019-03-01] MEDS: methylPREDNISolone sod succ 125mg/2ml vial IV SCH ×2 (03:00→07:32)
[2019-03-01] MEDS: acetaminophen 325mg tablet PO PRN (03:08)
[2019-03-01] MEDS: ipratropium/albuterol 3ml nebule NEB SCH ×5 (04:00→11:33)
[2019-03-01 06:22] LABS: BASOPHILS % (AUTO) 0.2 % (0-1); EOSINOPHILS % (AUTO) 0.3 % (0-6); HEMATOCRIT 30.8 % (35.0-45.0); LYMPHOCYTES # (AUTO) 0.4 X10'3 (1.1-4.8); LYMPHOCYTES % (AUTO) 4.9 % (21-51); MEAN CORPUSCULAR HEMOGLOBIN 27.1 PG (27.0-31.0); MEAN CORPUSCULAR HGB CONC 32.4 g/dL (33.0-36.5); MEAN CORPUSCULAR VOLUME 83.4 FL (78-98); MEAN PLATELET VOLUME 7.3 FL (7.4-10.4); MONOCYTES # (AUTO) 0.4 X10'3 (0-0.9); NEUTROPHILS # (AUTO) 7.4 X10'3 (1.8-7.7); NEUTROPHILS % (AUTO) 89.6 % (42-75); PLATELET COUNT 315 X10'3 (140-440); RED BLOOD COUNT 3.69 X10'6 (4.20-5.60); RED CELL DISTRIBUTION WIDTH 16.5 % (11.5-14.5); WHITE BLOOD COUNT 8.3 X10'3 (4.5-11.0)
--- NOTE | 2019-03-01 06:39 | NUR ---
Problems reprioritized. Patient report given, questions answered & plan of care reviewed with SOLEDAD Harris.
[2019-03-01 06:55] LABS: ALBUMIN 2.9 G/DL (3.4-5.0); ANION GAP 9 (8-16); BLOOD UREA NITROGEN 18 MG/DL (7-18); BUN/CREATININE RATIO 21.7 (6.6-38.0); CALCIUM 9.1 MG/DL (8.5-10.1); CHLORIDE 100 MMOL/L (99-107); CREATININE 0.83 MG/DL (0.40-0.90); GLUCOSE 184 MG/DL (70-104); POTASSIUM 4.2 MMOL/L (3.5-5.1); SODIUM 135 MMOL/L (135-145); TOTAL CARBON DIOXIDE 25.6 MMOL/L (24-32); eGFR 71 ML/MIN
--- NOTE | 2019-03-01 06:56 | NUR ---
Patient in room [facility]. I have received report from Arnold ROWE and had the opportunity to ask questions and assume patient care.
[2019-03-01] MEDS: azithromycin 250mg tablet PO SCH (07:25)
[2019-03-01] MEDS: atorvastatin 20mg tablet PO SCH (07:25)
[2019-03-01] MEDS: guaiFENesin ER 600mg tablet PO SCH (07:26)
[2019-03-01] MEDS: duloxetine 30mg CAPSULE.DR PO SCH (07:26)
[2019-03-01] MEDS: aspirin 81mg tablet.DR PO SCH (07:26)
[2019-03-01] MEDS: metoclopramide 10mg tablet PO SCH (07:26)
[2019-03-01] MEDS: ascorbic acid 500mg tablet PO SCH (07:26)
[2019-03-01] MEDS: lactobacillus rhamnosus 10,000 MMU CELLS/CAPSULE PO SCH (07:26)
[2019-03-01] MEDS: docusate sod 100mg capsule PO SCH (07:26)
[2019-03-01] MEDS: pantoprazole 40mg Tablet.DR PO SCH (07:27)
[2019-03-01] MEDS: enoxaparin 40mg/0.4ml syringe SQ SCH (07:27)
[2019-03-01] MEDS: cycloSPORINE 0.05% ophthalmic emulsion EACHEYE SCH (07:31)
[2019-03-01] MEDS: CefTRIAXone 2gm/D5W 50ml 50 ML IV SCH (07:36)
[2019-03-01] MEDS: insulin Lispro (HumaLOG) vial - multi-dose SQ SCH (08:39)
[2019-03-01 09:59] VITALS: BP 130/77
[2019-03-01] MEDS ORDERED: pneumococcal 23-VAL P-sac vacc 25 mcg/0.5ml vial IMVAC ONE (10:00)
[2019-03-01] MEDS ORDERED: FLU VACC QS 2019-20 (6 MOS UP) 60 MCG/0.5 ML VIAL IMVAC ONE (10:00)
[2019-03-01] MEDS ORDERED: ALBU8.5H8 INH (10:32)
[2019-03-01] MEDS ORDERED: BUDE10.22 INH (10:32)
[2019-03-01] MEDS ORDERED: PRED10TA23 PO (10:32)
[2019-03-01] MEDS ORDERED: AZI25OT PO (10:32)
[2019-03-01] MEDS ORDERED: LACT1CAP26 PO (10:32)
[2019-03-01] MEDS ORDERED: CEFD300C3 PO (10:32)
--- NOTE | 2019-03-01 13:54 | NUR ---
Patient D/C home per Dr. Oreilly. Patient alert and oriented on stable conditions. IV removed. discharge and medication instructions given to pt. Patient left the hospital via medi-van accompanied by limb driver.
[2019-03-01] MEDS ORDERED: QUEtiapine 25mg tablet PO SCH (16:00)
== END 2019-03-01 12:16 | disposition home health service (06) | DRG 871 ==
LOC: ER 05:42 → ED HOLD 07:11 → SUR 3N 09:24
PROVIDERS: ADMIT Hospitalist; ATTEND Family Medicine
DX: A41.9 Sepsis, unspecified organism (principal); J18.9 Pneumonia, unspecified organism; J96.91 Respiratory failure, unspecified with hypoxia; J44.1 Chronic obstructive pulmonary disease with (acute) exacerbation; J44.0 Chronic obstructive pulmonary disease with (acute) lower respiratory infection; K21.9 Gastro-esophageal reflux disease without esophagitis; E11.9 Type 2 diabetes mellitus without complications; E78.00 Pure hypercholesterolemia, unspecified; Z60.2 Problems related to living alone; F32.9 Major depressive disorder, single episode, unspecified; F41.9 Anxiety disorder, unspecified; G89.29 Other chronic pain; M54.9 Dorsalgia, unspecified; G47.33 Obstructive sleep apnea (adult) (pediatric); K59.09 Other constipation; Z87.440 Personal history of urinary (tract) infections; Z87.891 Personal history of nicotine dependence; Z88.1 Allergy status to other antibiotic agents; Z79.899 Other long term (current) drug therapy; Z79.82 Long term (current) use of aspirin; Z80.8 Family history of malignant neoplasm of other organs or systems
CPT/HCPCS: 36415; 71045; 80048; 80053; 82948; 83036; 83605; 83735; 84145; 84484; 85025; 85610; 85730; 87040; 87081; 90732; 93005; 94640; 94760; 99285; G0378; J0456; J0696; J1650; J1815; J2060; J2930; J7512; J8597

== ENCOUNTER 2019-04-21 17:22 | Inpatient (IN) | payer MEDICARE, MEDICAID ==
[~2019-04-21] VITALS: Ht 167.6 cm; Wt 78.3 kg
[~2019-04-21 17:22] MED LIST changes: -ALBU18HF2 INH; -ALBU2.5V13 NEB; -ALBU6.7H3 IH; -ALBU6.7H9 INH; +ALBU8.5H8 INH; +ASCO500C15 PO; +AZI25OT PO; +BUDE10.22 INH; -CEPH500C5 PO; -CHOL2000 PO; -CYAN-51 PO; +CYCL1DRO OT; +DOCU-148 PO; -FOLI0.4T2 PO; -GUAI100L97 PO; +GUAI600T45 PO; +LACT1CAP26 PO; -LEVO500T89 PO; -METH-360 PO; +METO-292 PO; -MOME17SP NS; -MULT-1085 PO; -OMEG500C PO; -PRED10TA PO; -TIOT4MIS5
[2019-04-21] MEDS ORDERED: normal saline 1000ML IV soln IV ONE (17:45)
[2019-04-21] MEDS ORDERED: ipratropium/albuterol 3ml nebule NEB ONE (17:45)
[2019-04-21] MEDS ORDERED: azithromycin/NS 500mg/250ml 250 ML IV ONE (17:50)
[2019-04-21] MEDS ORDERED: methylPREDNISolone sod succ 125mg/2ml vial IV ONE (17:50)
[2019-04-21 17:54] LABS: BASOPHILS # (AUTO) 0.1 X10'3 (0-0.2); BASOPHILS % (AUTO) 0.5 % (0-1); EOSINOPHILS # (AUTO) 0.1 X10'3 (0-0.9); EOSINOPHILS % (AUTO) 0.4 % (0-6); HEMATOCRIT 36.7 % (35.0-45.0); HEMOGLOBIN 11.7 g/dl (12.0-16.0); LYMPHOCYTES % (AUTO) 6.5 % (21-51); MEAN CORPUSCULAR HEMOGLOBIN 26.1 PG (27.0-31.0); MEAN CORPUSCULAR HGB CONC 31.8 g/dL (33.0-36.5); MEAN CORPUSCULAR VOLUME 82.1 FL (78-98); MONOCYTES % (AUTO) 6.2 % (2-12); NEUTROPHILS # (AUTO) 13.8 X10'3 (1.8-7.7); NEUTROPHILS % (AUTO) 86.4 % (42-75); PLATELET COUNT 300 X10'3 (140-440); RED BLOOD COUNT 4.47 X10'6 (4.20-5.60); RED CELL DISTRIBUTION WIDTH 16.1 % (11.5-14.5)
[2019-04-21] MEDS ORDERED: LORazepam 2 mg/ml vial IV ONE (18:00)
[2019-04-21 18:04] LABS: PARTIAL THROMBOPLASTIN TIME 30 SECONDS (22-32)
[2019-04-21] MEDS ORDERED: iohexol 350MG/ML 100ml bottle IV ONE (18:08)
[2019-04-21] MEDS ORDERED: TIOT4MIS3 INH (18:09)
[2019-04-21] MEDS ORDERED: GUAI-1078 PO (18:09)
[2019-04-21] MEDS ORDERED: ACET-75 PO (18:09)
[2019-04-21] MEDS ORDERED: METO10TA3 PO (18:09)
[2019-04-21] MEDS ORDERED: PRAV80TA3 PO (18:09)
[2019-04-21] MEDS ORDERED: METF-950 PO (18:09)
[2019-04-21] MEDS ORDERED: OMEP40CA13 PO (18:09)
[2019-04-21] MEDS ORDERED: DULO60CA65 PO (18:09)
[2019-04-21] MEDS ORDERED: PRE5T PO (18:09)
[2019-04-21] MEDS ORDERED: ALBU18HF2 INH (18:09)
[2019-04-21] MEDS ORDERED: BENZ-49 PO (18:09)
[2019-04-21] MEDS ORDERED: GUAI600T45 PO (18:09)
[2019-04-21] MEDS ORDERED: CYCL5.5D EACHEYE (18:09)
[2019-04-21] MEDS ORDERED: FLUT15.87 NS (18:09)
[2019-04-21] MEDS ORDERED: IBUP-1985 PO (18:09)
[2019-04-21] MEDS ORDERED: TRAM50TA2 PO (18:09)
[2019-04-21] MEDS ORDERED: CHOL10002 PO (18:09)
[2019-04-21 18:11] LABS: ALANINE AMINOTRANSFERASE 21 U/L (12-78); ALBUMIN 3.5 G/DL (3.4-5.0); ALKALINE PHOSPHATASE 43 IU/L (46-116); ANION GAP 7 (8-16); ASPARTATE AMINO TRANSFERASE 20 U/L (10-37); BILIRUBIN,TOTAL 0.5 MG/DL (0.1-1.0); BLOOD UREA NITROGEN 22 MG/DL (7-18); BUN/CREATININE RATIO 14.1 (6.6-38.0); CALCIUM 8.8 MG/DL (8.5-10.1); CHLORIDE 97 MMOL/L (99-107); CREATININE 1.56 MG/DL (0.40-0.90); GLUCOSE 95 MG/DL (70-104); SODIUM 138 MMOL/L (135-145); TOTAL CARBON DIOXIDE 33.8 MMOL/L (24-32); TOTAL PROTEIN 7.1 G/DL (6.4-8.2); eGFR 34 ML/MIN
[2019-04-21] MEDS ORDERED: TURM1POW PO (18:11)
[2019-04-21] MEDS ORDERED: DOCU-20 PO (18:11)
[2019-04-21] MEDS ORDERED: CefTRIAXone/D5W-Rocephin 1gm 50 ML IV ONE (18:55)
[2019-04-21 19:00] LABS: ABG BASE EXCESS 0.1 mmol/L (-2.0-3.0); ABG HCO3 25.8 mmol/L (22.0-26.0); ABG OXYGEN SATURATION 93.3 % (95-98); ABG PCO2 (T) 46.9 mmHg (35.0-45.0); ABG PH (T) 7.358 (7.350-7.450); ABG PO2 (T) 70.5 mmHg (83-108); ALLEN'S TEST POSITIVE; FCOHb 1.8 % (0.5-1.5); FMetHb 0.3 % (0.3-1.12); FO2Hb 91.3 % (94-100); TOTAL HEMOGLOBIN 9.7 G/dl (12.0-16.0)
[2019-04-21] MEDS ORDERED: normal saline 1000ml 1,000 ML IV ONE (19:05)
[2019-04-21] MEDS: MESSAGE TO PHARMACY PO NR (19:08)
[2019-04-21] MEDS: MESSAGE TO NURSING PO NR (19:08)
--- NOTE | 2019-04-21 19:28 | NUR ---
Dr. Head made aware Pt with 80's SBP. Fluid bolus in process. Dr. Head ordered to reassess BP after 2500 ml fluid bolus completed. Plan to prepare Pt for central line placement.
--- NOTE | 2019-04-21 19:50 | NUR ---
Dr. Key made aware Pt BP at 91/55 after fluid bolus complete. to place central line.
--- NOTE | 2019-04-21 19:57 | NUR ---
Dr. Head called away to assist with Pt care in ICU.
[2019-04-21] MEDS ORDERED: potassium Cl 20mEq/100mL bag 100 ML IV PRN ×2 (21:10)
[2019-04-21] MEDS ORDERED: magnesium hydroxide 30ml (MOM) UD suspension PO PRN (21:10)
[2019-04-21] MEDS ORDERED: acetaminophen 325mg tablet PO PRN (21:10)
[2019-04-21] MEDS ORDERED: potassium Cl 20 mEq SR tablet PO PRN ×2 (21:10)
[2019-04-21] MEDS ORDERED: morphine 4 MG/ML inj SYRINge IV PRN (21:10)
[2019-04-21] MEDS ORDERED: vancomycin/NS 1 GM ADD-VANTAGE 250 ML IV ONE (21:10)
[2019-04-21] MEDS ORDERED: ondansetron/PF 4mg/2ml inj IV PRN (21:10)
--- NOTE | 2019-04-21 21:19 | NUR ---
Dr. Head made aware central leaking when proximal port is flushed. Distal and Medial 2 will draw back and flush, Medial 1 does not draw back but does flush. Dr. Head ok to use 3 working ports, do not use proximal port.
[2019-04-21] MEDS ORDERED: dextrose 50%-water 50ml dispensing syringe IV PRN ×2 (22:15)
[2019-04-21] MEDS ORDERED: glucagon, human recombinant 1mg kit SUBCUT PRN (22:15)
[2019-04-21] MEDS ORDERED: dextrose ORAL solution 15 GM/59 ML bottle PO PRN ×2 (22:15)
[2019-04-21] MEDS ORDERED: MESSAGE TO PHARMACY PO ONE (22:15)
[2019-04-21] MEDS: normal saline 1000ml 1,000 ML IV SCH (22:32)
[2019-04-21 23:30] VITALS: BP 109/72
--- NOTE | 2019-04-21 23:47 | NUR ---
2315..Patient in room CICU 2009. I have received report from BOOK JACKET COVER MACHINE OPERATOR and had the opportunity to ask questions and assume patient care.
[2019-04-21] MEDS: K, MAG and/or Phos replacement - Verify level? MC SCH (23:52)
[2019-04-22] VITALS (24 sets, daily range): BP systolic 98–144; BP diastolic 63–90
[2019-04-22] MEDS: piperacillin/tazo 3.375gm/50ml 50 ML IV SCH ×3 (00:47→16:21)
--- NOTE | 2019-04-22 01:10 | NUR ---
2345..Assessment as noted. Pt given ativan in ER, and took own seroquel prior to comming to hospital, currently very sleepy, will arouse, but not remain awake.
[2019-04-22] MEDS: methylPREDNISolone sod succ/PF 40mg inj. IV SCH ×4 (01:53→20:28)
--- NOTE | 2019-04-22 02:21 | NUR ---
0000..Due to pt being so sleepy and difficult to keep awake, admission interviews not completed at this time.
--- NOTE | 2019-04-22 02:22 | NUR ---
0200..No changes noted.
[2019-04-22 02:42] LABS: BASOPHILS % (AUTO) 0.1 % (0-1); EOSINOPHILS % (AUTO) 0 % (0-6); HEMATOCRIT 30.3 % (35.0-45.0); HEMOGLOBIN 9.7 g/dl (12.0-16.0); LYMPHOCYTES # (AUTO) 0.4 X10'3 (1.1-4.8); LYMPHOCYTES % (AUTO) 2.6 % (21-51); MEAN CORPUSCULAR HEMOGLOBIN 26.1 PG (27.0-31.0); MEAN CORPUSCULAR HGB CONC 31.9 g/dL (33.0-36.5); MEAN CORPUSCULAR VOLUME 81.7 FL (78-98); MEAN PLATELET VOLUME 7.2 FL (7.4-10.4); MONOCYTES # (AUTO) 0.6 X10'3 (0-0.9); MONOCYTES % (AUTO) 4.3 % (2-12); NEUTROPHILS # (AUTO) 12.8 X10'3 (1.8-7.7); PLATELET COUNT 232 X10'3 (140-440); WHITE BLOOD COUNT 13.7 X10'3 (4.5-11.0)
[2019-04-22 03:04] LABS: ALANINE AMINOTRANSFERASE 18 U/L (12-78); ALBUMIN 2.8 G/DL (3.4-5.0); ALBUMIN/GLOBULIN RATIO 0.8 (1.1-1.5); ALKALINE PHOSPHATASE 38 IU/L (46-116); ANION GAP 8 (8-16); ASPARTATE AMINO TRANSFERASE 12 U/L (10-37); BILIRUBIN,TOTAL 0.4 MG/DL (0.1-1.0); BLOOD UREA NITROGEN 21 MG/DL (7-18); CALCIUM 7.7 MG/DL (8.5-10.1); CHLORIDE 102 MMOL/L (99-107); GLUCOSE 121 MG/DL (70-104); MAGNESIUM 1.5 MG/DL (1.5-2.4); PHOSPHORUS 4.7 MG/DL (2.3-4.5); POTASSIUM 4.3 MMOL/L (3.5-5.1); SODIUM 140 MMOL/L (135-145); TOTAL CARBON DIOXIDE 29.6 MMOL/L (24-32); TOTAL PROTEIN 6.2 G/DL (6.4-8.2); TROPONIN I < 0.04 NG/ML (0.0-0.05); eGFR 57 ML/MIN
[2019-04-22 03:31] LABS: TOTAL CELLS COUNTED 100
[2019-04-22 03:34] LABS: ANISOCYTOSIS 1+; LARGE PLATELETS FEW; PLATELET ESTIMATE NORMAL; POLYCHROMASIA FEW
[2019-04-22] MEDS ORDERED: LORazepam 2 mg/ml vial IV ONE ×2 (04:05→19:05)
[2019-04-22] MEDS ORDERED: LORazepam 2 mg/ml vial ONE ×2 (04:09→19:13)
--- NOTE | 2019-04-22 04:26 | NUR ---
0400..Pt woke up, verbally abusive and noncompliant. Denies pain. Is very short of breath off bipap.
--- NOTE | 2019-04-22 04:27 | NUR ---
0430..Pt unable to void, per orders chilel cath placed x1 attempt, with immediate return pale urine. Ativan given per orders for agitation, with good effect.
--- NOTE | 2019-04-22 06:05 | NUR ---
0500..Resting quietly.Ativan effective.
--- NOTE | 2019-04-22 06:44 | NUR ---
0640Problems reprioritized. Patient report given, questions answered & plan of care reviewed with receiving RN.
[2019-04-22] MEDS: MESSAGE TO PHARMACY PO NR (07:31)
[2019-04-22] MEDS: MESSAGE TO NURSING PO NR (07:31)
[2019-04-22] MEDS: K, MAG and/or Phos replacement - Verify level? MC SCH (08:00)
[2019-04-22] MEDS ORDERED: vancomycin/NS 1 GM ADD-VANTAGE 250 ML X 1 DOSE IV SCH (08:00)
[2019-04-22] MEDS: (Tiotropium Br/Olodaterol HCl (Stiolto Respimat Inhal Spray) 2 PUFFS) PO SCH (08:00)
[2019-04-22] MEDS: K and/or MAG REPLACEMENT MC SCH (08:00)
[2019-04-22] MEDS: docusate sod 100mg capsule PO SCH ×2 (09:02→20:29)
[2019-04-22] MEDS: duloxetine 30mg CAPSULE.DR PO SCH (09:03)
[2019-04-22] MEDS: pravastatin 40mg tablet PO SCH (09:03)
[2019-04-22] MEDS: guaiFENesin ER 600mg tablet PO SCH (09:03)
[2019-04-22] MEDS: pantoprazole 40mg Tablet.DR PO SCH (09:03)
[2019-04-22] MEDS: fluticasone nasal spray 16GM bottle NS SCH (09:04)
[2019-04-22] MEDS: cycloSPORINE 0.05% ophthalmic emulsion EACHEYE SCH ×2 (09:04→20:32)
[2019-04-22] MEDS: enoxaparin 40mg/0.4ml syringe SUBCUT SCH (09:05)
[2019-04-22] MEDS: acetaminophen 325mg tablet PO PRN ×2 (10:02→16:21)
[2019-04-22] MEDS: VANCOmycin 1250MG/NS 250ml Bag 250 ML IV SCH ×2 (10:03→22:00)
[2019-04-22] MEDS: normal saline 1000ml 1,000 ML IV SCH (11:03)
--- NOTE | 2019-04-22 17:00 | NUR ---
Patient was sitting on commode and monitor started alarming. Patient was very agitated and screaming at the monitor to "shut up" nurse entered room and monitor showed what appeared to be Torsades, patient did not experience ALOC, SBP elevated to 165, other nurses came to help and charge nurse was called, patient was thrashing about and pulling at lines/leads, some leads were noted to be off and were replaced, once leads were replaced patient was back in normal sinus rhythm. returned to bed and currently [id number] Addendum: 04/22/19 at 1707 by Karli Guadalupe RN This occurred at 1638
[2019-04-22] MEDS ORDERED: magnesium 2GM in 50ml NS 50 ML IV PRN (17:15)
[2019-04-22] MEDS ORDERED: magnesium 4gm in 100ml NS 100 ML IV PRN (17:15)
[2019-04-22] MEDS: magnesium Cl slow-release 64mg tablet PO PRN (17:38)
[2019-04-22] MEDS: ibuprofen 200mg tablet PO PRN (17:38)
[2019-04-22] MEDS ORDERED: mag hydrox/Alum hydrox/simeth 30ml oral suspension PO ONE (17:45)
[2019-04-22] MEDS ORDERED: iohexol 350MG/ML 100ml bottle IV ONE (17:56)
--- NOTE | 2019-04-22 18:30 | NUR ---
Problems reprioritized. Patient report given, questions answered & plan of care reviewed with SOLEDAD Arguello.
--- NOTE | 2019-04-22 18:34 | NUR ---
Patient in room CICU 2009. I have received report from Karli ROWE and had the opportunity to ask questions and assume patient care.
--- NOTE | 2019-04-22 19:07 | NUR ---
call to love castrejon NP to request a sedative for patient because she has to go to CT Abdomen. Currently patient is uncooperative. chlorobutadiene scrubber operator also mentioned issues with cooperation in last nights CT with this patient. Order given for ativan 2 mg iv x [address]
[2019-04-22] MEDS: lactobacillus rhamnosus 10,000 MMU CELLS/CAPSULE PO SCH (20:28)
--- NOTE | 2019-04-22 20:30 | NUR ---
Pt to CT and back via gurney w/o incident, accompanied by RN and NA. VSS throughout, remains in SR.
[2019-04-22] MEDS: insulin glargine (Lantus) pen - multi-dose SQ SCH (21:00)
--- NOTE | 2019-04-22 21:32 | NUR ---
ativan dose was not needed for the travel to [place]. I have returned the unopened vial of Ativan to the [facility] per protocol
[2019-04-23] VITALS (20 sets, daily range): BP systolic 123–180; BP diastolic 62–103
[2019-04-23] MEDS: piperacillin/tazo 3.375gm/50ml 50 ML IV SCH ×3 (00:28→15:43)
[2019-04-23] MEDS: methylPREDNISolone sod succ/PF 40mg inj. IV SCH ×4 (02:16→20:00)
[2019-04-23] MEDS: magnesium Cl slow-release 64mg tablet PO PRN (04:16)
[2019-04-23] MEDS: normal saline 1000ml 1,000 ML IV SCH ×2 (06:09→13:12)
--- NOTE | 2019-04-23 06:28 | NUR ---
Patient in room CICU 2009. I have received report from Saundra and had the opportunity to ask questions and assume patient care.
[2019-04-23] MEDS: K, MAG and/or Phos replacement - Verify level? MC SCH (06:34)
[2019-04-23] MEDS: K and/or MAG REPLACEMENT MC SCH (06:34)
[2019-04-23] MEDS: cycloSPORINE 0.05% ophthalmic emulsion EACHEYE SCH ×2 (07:05→20:00)
[2019-04-23] MEDS: enoxaparin 40mg/0.4ml syringe SUBCUT SCH (07:05)
[2019-04-23] MEDS: fluticasone nasal spray 16GM bottle NS SCH (07:06)
[2019-04-23 07:15] LABS: BASOPHILS % (AUTO) 0 % (0-1); EOSINOPHILS % (AUTO) 0 % (0-6); HEMATOCRIT 28.3 % (35.0-45.0); HEMOGLOBIN 9.1 g/dl (12.0-16.0); LYMPHOCYTES # (AUTO) 0.3 X10'3 (1.1-4.8); LYMPHOCYTES % (AUTO) 2.2 % (21-51); MEAN CORPUSCULAR HEMOGLOBIN 26.1 PG (27.0-31.0); MEAN CORPUSCULAR VOLUME 81.7 FL (78-98); MEAN PLATELET VOLUME 7.2 FL (7.4-10.4); MONOCYTES # (AUTO) 0.4 X10'3 (0-0.9); MONOCYTES % (AUTO) 3.6 % (2-12); NEUTROPHILS # (AUTO) 11.8 X10'3 (1.8-7.7); NEUTROPHILS % (AUTO) 94.2 % (42-75); PLATELET COUNT 230 X10'3 (140-440); RED BLOOD COUNT 3.46 X10'6 (4.20-5.60); RED CELL DISTRIBUTION WIDTH 15.6 % (11.5-14.5); WHITE BLOOD COUNT 12.5 X10'3 (4.5-11.0)
[2019-04-23 07:31] LABS: ALANINE AMINOTRANSFERASE 17 U/L (12-78); ALBUMIN 2.7 G/DL (3.4-5.0); ALBUMIN/GLOBULIN RATIO 0.7 (1.1-1.5); ALKALINE PHOSPHATASE 36 IU/L (46-116); ANION GAP 7 (8-16); ASPARTATE AMINO TRANSFERASE 12 U/L (10-37); BILIRUBIN,TOTAL 0.3 MG/DL (0.1-1.0); BLOOD UREA NITROGEN 17 MG/DL (7-18); CALCIUM 8.6 MG/DL (8.5-10.1); CHLORIDE 101 MMOL/L (99-107); CREATININE 0.68 MG/DL (0.40-0.90); GLUCOSE 132 MG/DL (70-104); POTASSIUM 4.5 MMOL/L (3.5-5.1); SODIUM 138 MMOL/L (135-145); TOTAL CARBON DIOXIDE 30.5 MMOL/L (24-32); TOTAL PROTEIN 6.5 G/DL (6.4-8.2); eGFR 89 ML/MIN
[2019-04-23 07:39] LABS: MAGNESIUM 2.5 MG/DL (1.5-2.4); PHOSPHORUS 2.9 MG/DL (2.3-4.5)
[2019-04-23] MEDS: (Tiotropium Br/Olodaterol HCl (Stiolto Respimat Inhal Spray) 2 PUFFS) PO SCH (08:00)
[2019-04-23] MEDS: docusate sod 100mg capsule PO SCH ×2 (08:05→20:00)
[2019-04-23] MEDS: pravastatin 40mg tablet PO SCH (08:06)
[2019-04-23] MEDS: lactobacillus rhamnosus 10,000 MMU CELLS/CAPSULE PO SCH ×2 (08:06→20:00)
[2019-04-23] MEDS: duloxetine 30mg CAPSULE.DR PO SCH (08:06)
[2019-04-23] MEDS: pantoprazole 40mg Tablet.DR PO SCH (08:06)
[2019-04-23] MEDS: guaiFENesin ER 600mg tablet PO SCH (08:06)
[2019-04-23] MEDS: ipratropium/albuterol 3ml nebule NEB PRN ×3 (08:36→22:25)
[2019-04-23] MEDS: ibuprofen 200mg tablet PO PRN (08:47)
[2019-04-23] MEDS: MESSAGE TO NURSING PO NR (08:59)
[2019-04-23] MEDS: MESSAGE TO PHARMACY PO NR (08:59)
[2019-04-23] MEDS: VANCOmycin 1250MG/NS 250ml Bag 250 ML IV SCH ×2 (09:30→22:00)
--- NOTE | 2019-04-23 10:48 | NUR ---
Up ambulating 300 ft with PT. Now sitting up in chair watching tv.
--- NOTE | 2019-04-23 11:03 | NUR ---
DM consult: Pt with A1c 6.4, DM education not warranted at this time. Will continue to follow. Addendum: 04/23/19 at [address] Amended: Links added.
--- NOTE | 2019-04-23 15:10 | NUR ---
Report called to Pat on ACCE unit.
--- NOTE | 2019-04-23 15:32 | NUR ---
RECEIVED REPORT AND PATIENT FROM UNIT. PATIENT ARRIVED VIA W/C AND PLACED IN ROOM 311 WITH CALL LIGHT IN REACH. NO C/O PAIN, SOB,NAUSEA OR VOMITING AT THIS TIME. Addendum: 04/23/19 at 1538 by Alaina Warren RN Amended: Links added.
--- NOTE | 2019-04-23 15:42 | NUR ---
Transferred to room 311 with all belongings.
[2019-04-23] MEDS: morphine 2 MG/ML inj. syringe IV PRN ×2 (17:35→22:37)
--- NOTE | 2019-04-23 18:10 | NUR ---
received report from Paula RN
--- NOTE | 2019-04-23 21:00 | NUR ---
requested PRN breathing tx. sent page to RT.
[2019-04-23] MEDS ORDERED: VANCOMYCIN LEVEL IV ONE (21:30)
[2019-04-23] MEDS: insulin glargine (Lantus) pen - multi-dose SQ SCH (22:32)
[2019-04-24] MEDS: piperacillin/tazo 3.375gm/50ml 50 ML IV SCH ×4 (00:49→23:17)
[2019-04-24] MEDS: normal saline 1000ml 1,000 ML IV SCH ×2 (02:27→15:47)
[2019-04-24 02:30] VITALS: BP 125/61
[2019-04-24 04:03] LABS: BASOPHILS % (AUTO) 0 % (0-1); EOSINOPHILS % (AUTO) 0 % (0-6); HEMATOCRIT 26.4 % (35.0-45.0); HEMOGLOBIN 8.4 g/dl (12.0-16.0); LYMPHOCYTES # (AUTO) 0.4 X10'3 (1.1-4.8); LYMPHOCYTES % (AUTO) 3.1 % (21-51); MEAN CORPUSCULAR HEMOGLOBIN 25.8 PG (27.0-31.0); MEAN CORPUSCULAR HGB CONC 31.9 g/dL (33.0-36.5); MEAN CORPUSCULAR VOLUME 80.9 FL (78-98); MEAN PLATELET VOLUME 7.4 FL (7.4-10.4); MONOCYTES # (AUTO) 0.6 X10'3 (0-0.9); NEUTROPHILS # (AUTO) 11.5 X10'3 (1.8-7.7); NEUTROPHILS % (AUTO) 91.9 % (42-75); PLATELET COUNT 232 X10'3 (140-440); RED BLOOD COUNT 3.26 X10'6 (4.20-5.60); RED CELL DISTRIBUTION WIDTH 15.5 % (11.5-14.5); WHITE BLOOD COUNT 12.5 X10'3 (4.5-11.0)
[2019-04-24] MEDS: methylPREDNISolone sod succ/PF 40mg inj. IV SCH ×2 (04:06→10:10)
[2019-04-24 04:18] LABS: ALANINE AMINOTRANSFERASE 18 U/L (12-78); ALBUMIN 2.7 G/DL (3.4-5.0); ALBUMIN/GLOBULIN RATIO 0.8 (1.1-1.5); ALKALINE PHOSPHATASE 46 IU/L (46-116); ANION GAP 5 (8-16); ASPARTATE AMINO TRANSFERASE 10 U/L (10-37); BILIRUBIN,TOTAL 0.1 MG/DL (0.1-1.0); BLOOD UREA NITROGEN 15 MG/DL (7-18); BUN/CREATININE RATIO 19.2 (6.6-38.0); CALCIUM 8.5 MG/DL (8.5-10.1); CHLORIDE 104 MMOL/L (99-107); CREATININE 0.78 MG/DL (0.40-0.90); GLUCOSE 164 MG/DL (70-104); MAGNESIUM 2.1 MG/DL (1.5-2.4); POTASSIUM 4.2 MMOL/L (3.5-5.1); SODIUM 139 MMOL/L (135-145); TOTAL CARBON DIOXIDE 29.7 MMOL/L (24-32); TOTAL PROTEIN 6.3 G/DL (6.4-8.2); eGFR 76 ML/MIN
--- NOTE | 2019-04-24 05:00 | NUR ---
pt ambulated with tech and head charger
[2019-04-24 06:00] VITALS: BP 167/71
--- NOTE | 2019-04-24 06:00 | NUR ---
Patient in room MED 315. I have received report from SOLEDAD Ramirez and had the opportunity to ask questions and assume patient care.
--- NOTE | 2019-04-24 06:40 | NUR ---
gave report to SOLEDAD Serrato
--- NOTE | 2019-04-24 07:19 | NUR ---
I have reviewed and agree with all medications administered and interventions performed by SN Shanda
[2019-04-24] MEDS: pravastatin 40mg tablet PO SCH (08:00)
[2019-04-24] MEDS: fluticasone nasal spray 16GM bottle NS SCH (08:00)
[2019-04-24] MEDS: cycloSPORINE 0.05% ophthalmic emulsion EACHEYE SCH ×2 (08:00→20:00)
[2019-04-24] MEDS: K, MAG and/or Phos replacement - Verify level? MC SCH (08:00)
[2019-04-24] MEDS: (Tiotropium Br/Olodaterol HCl (Stiolto Respimat Inhal Spray) 2 PUFFS) PO SCH (08:00)
[2019-04-24] MEDS: K and/or MAG REPLACEMENT MC SCH (08:00)
[2019-04-24] MEDS: enoxaparin 40mg/0.4ml syringe SUBCUT SCH (10:08)
[2019-04-24] MEDS: pantoprazole 40mg Tablet.DR PO SCH (10:09)
[2019-04-24] MEDS: duloxetine 30mg CAPSULE.DR PO SCH (10:10)
[2019-04-24] MEDS: guaiFENesin ER 600mg tablet PO SCH (10:11)
[2019-04-24] MEDS: lactobacillus rhamnosus 10,000 MMU CELLS/CAPSULE PO SCH ×2 (10:12→20:00)
[2019-04-24] MEDS: docusate sod 100mg capsule PO SCH ×2 (10:12→20:00)
--- NOTE | 2019-04-24 10:40 | NUR ---
unable to cover insulin this morning. Pharmacy has not sent up insulin as of now
[2019-04-24] MEDS: VANCOmycin 1250MG/NS 250ml Bag 250 ML IV SCH (10:53)
[2019-04-24] MEDS: ipratropium/albuterol 3ml nebule NEB SCH ×5 (10:55→22:34)
[2019-04-24 11:00] VITALS: BP 125/48
[2019-04-24] MEDS ORDERED: benzonatate 100mg capsule PO PRN (11:05)
[2019-04-24] MEDS ORDERED: predniSONE 5mg tablet PO SCH (11:05)
[2019-04-24] MEDS: traMADol 50MG tablet PO SCH ×2 (12:08→21:35)
--- NOTE | 2019-04-24 13:00 | NUR ---
Pt refused insulin
--- NOTE | 2019-04-24 13:21 | NUR ---
Pt ambulated with PT, completed one loop around the unit, tolerated well.
[2019-04-24] MEDS ORDERED: predniSONE 20 mg tablet PO ONE ×2 (13:35→15:40)
[2019-04-24 15:00] VITALS: BP 158/83
[2019-04-24 18:00] VITALS: BP 152/81
--- NOTE | 2019-04-24 18:00 | NUR ---
Problems reprioritized. Patient report given, questions answered & plan of care reviewed with SOLEDAD Lee.
--- NOTE | 2019-04-24 18:00 | NUR ---
Patient in room MED 315. I have received report from JUNAID ROWE and had the opportunity to ask questions and assume patient care.
[2019-04-24] MEDS: insulin glargine (Lantus) pen - multi-dose SQ SCH (21:59)
[2019-04-24 22:00] VITALS: BP 169/94
[2019-04-24] MEDS ORDERED: QUET150T4 (22:30)
[2019-04-24] MEDS ORDERED: quetiapine 100mg tablet PO ONE (22:40)
[2019-04-24] MEDS ORDERED: QUEtiapine 25mg tablet PO ONE (22:50)
[2019-04-25 02:00] VITALS: BP 155/78
[2019-04-25 05:01] LABS: BASOPHILS % (AUTO) 0.1 % (0-1); EOSINOPHILS % (AUTO) 0 % (0-6); HEMATOCRIT 27.1 % (35.0-45.0); HEMOGLOBIN 8.8 g/dl (12.0-16.0); LYMPHOCYTES # (AUTO) 0.9 X10'3 (1.1-4.8); MEAN CORPUSCULAR HEMOGLOBIN 26.1 PG (27.0-31.0); MEAN CORPUSCULAR HGB CONC 32.5 g/dL (33.0-36.5); MEAN CORPUSCULAR VOLUME 80.3 FL (78-98); MEAN PLATELET VOLUME 7.2 FL (7.4-10.4); MONOCYTES # (AUTO) 0.9 X10'3 (0-0.9); MONOCYTES % (AUTO) 9.4 % (2-12); NEUTROPHILS % (AUTO) 81.5 % (42-75); PLATELET COUNT 248 X10'3 (140-440); RED BLOOD COUNT 3.37 X10'6 (4.20-5.60); RED CELL DISTRIBUTION WIDTH 15.9 % (11.5-14.5); WHITE BLOOD COUNT 9.8 X10'3 (4.5-11.0)
[2019-04-25 05:09] LABS: ALANINE AMINOTRANSFERASE 16 U/L (12-78); ALBUMIN 2.9 G/DL (3.4-5.0); ALBUMIN/GLOBULIN RATIO 0.8 (1.1-1.5); ALKALINE PHOSPHATASE 48 IU/L (46-116); ANION GAP 6 (8-16); ASPARTATE AMINO TRANSFERASE 7 U/L (10-37); BILIRUBIN,TOTAL 0.2 MG/DL (0.1-1.0); BLOOD UREA NITROGEN 11 MG/DL (7-18); BUN/CREATININE RATIO 15.5 (6.6-38.0); CALCIUM 9.1 MG/DL (8.5-10.1); CHLORIDE 104 MMOL/L (99-107); CREATININE 0.71 MG/DL (0.40-0.90); GLUCOSE 153 MG/DL (70-104); MAGNESIUM 1.8 MG/DL (1.5-2.4); PHOSPHORUS 2.6 MG/DL (2.3-4.5); POTASSIUM 3.5 MMOL/L (3.5-5.1); SODIUM 142 MMOL/L (135-145); TOTAL CARBON DIOXIDE 32.4 MMOL/L (24-32); TOTAL PROTEIN 6.5 G/DL (6.4-8.2); eGFR 85 ML/MIN
[2019-04-25 06:00] VITALS: BP 171/78
[2019-04-25 06:10] LABS: PLATELET ESTIMATE NORMAL; TOTAL CELLS COUNTED 100
[2019-04-25 06:11] LABS: ANISOCYTOSIS 1+
--- NOTE | 2019-04-25 06:30 | NUR ---
Patient in room MED 315. I have received report from KRAIG ROWE and had the opportunity to ask questions and assume patient care.
--- NOTE | 2019-04-25 06:39 | NUR ---
Problems reprioritized. Patient report given, questions answered & plan of care reviewed with LOWELL ROWE.
[2019-04-25] MEDS: ipratropium/albuterol 3ml nebule NEB SCH ×3 (07:18→14:26)
[2019-04-25] MEDS: (Tiotropium Br/Olodaterol HCl (Stiolto Respimat Inhal Spray) 2 PUFFS) PO SCH (08:00)
[2019-04-25] MEDS: K, MAG and/or Phos replacement - Verify level? MC SCH (08:00)
[2019-04-25] MEDS ORDERED: vitamin D (cholecalciferol) 1,000 unit tablet PO SCH (08:00)
[2019-04-25] MEDS: duloxetine 30mg CAPSULE.DR PO SCH (09:09)
[2019-04-25] MEDS: docusate sod 100mg capsule PO SCH (09:09)
[2019-04-25] MEDS: lactobacillus rhamnosus 10,000 MMU CELLS/CAPSULE PO SCH (09:09)
[2019-04-25] MEDS: pravastatin 40mg tablet PO SCH (09:09)
[2019-04-25] MEDS: guaiFENesin ER 600mg tablet PO SCH (09:09)
[2019-04-25] MEDS: piperacillin/tazo 3.375gm/50ml 50 ML IV SCH (09:10)
[2019-04-25] MEDS: cycloSPORINE 0.05% ophthalmic emulsion EACHEYE SCH (09:10)
[2019-04-25] MEDS: enoxaparin 40mg/0.4ml syringe SUBCUT SCH (09:10)
[2019-04-25] MEDS: traMADol 50MG tablet PO SCH ×2 (09:11→13:39)
[2019-04-25] MEDS: fluticasone nasal spray 16GM bottle NS SCH (09:11)
[2019-04-25] MEDS: pantoprazole 40mg Tablet.DR PO SCH (09:12)
[2019-04-25] MEDS: insulin Lispro (HumaLOG) vial - multi-dose SQ SCH ×2 (09:15→13:42)
[2019-04-25 10:53] VITALS: BP 145/76
[2019-04-25] MEDS ORDERED: predniSONE 5mg tablet PO SCH (11:05)
--- NOTE | 2019-04-25 12:53 | NUR ---
PAGED CASE MANAGEMENT RE: LSO BRACE SINCE PATIENT WILL BE GOING HOME TODAY.
--- NOTE | 2019-04-25 15:13 | NUR ---
DISCUSSED DISCHARGE INSTRUCTIONS WITH PATIENT, QUESTIONS ANSWERED, EDUCATION PROVIDED. IV REMOVED, TELE DC'D. BELONGINGS SENT WITH PATIENT. ESCORTED OUT VIA W/C AND FAMILY AT SIDE WITHOUT EVENT. EAGER TO GO HOME. HAS AN APPOINTMENT SET UP FOR TOMORROW.
[2019-04-25] MEDS ORDERED: quetiapine 100mg tablet PO SCH (21:00)
[2019-04-26] MEDS ORDERED: VANCOMYCIN LEVEL IV ONE (09:30)
== END 2019-04-25 15:10 | disposition home or self-care (01) | DRG 871 ==
LOC: ER 17:22 → ED HOLD 21:34 → CICU 2S 23:24 → MED 3N 04-23 15:39
PROVIDERS: ADMIT Internal Medicine Critical Care Medicine
PROC: 05H333Z Insertion of Infusion Device into Right Innominate Vein, Percutaneous Approach (ICD-10-PCS; principal; 2019-04-21)
PROC: 5A09357 Assistance with Respiratory Ventilation, Less than 24 Consecutive Hours, Continuous Positive Airway Pressure (ICD-10-PCS; 2019-04-21)
PROC: B32T1ZZ Computerized Tomography (CT Scan) of Left Pulmonary Artery using Low Osmolar Contrast (ICD-10-PCS; 2019-04-21)
PROC: B3201ZZ Computerized Tomography (CT Scan) of Thoracic Aorta using Low Osmolar Contrast (ICD-10-PCS; 2019-04-21)
PROC: B32S1ZZ Computerized Tomography (CT Scan) of Right Pulmonary Artery using Low Osmolar Contrast (ICD-10-PCS; 2019-04-21)
PROC: 5A09357 Assistance with Respiratory Ventilation, Less than 24 Consecutive Hours, Continuous Positive Airway Pressure (ICD-10-PCS; 2019-04-22)
PROC: B4201ZZ Computerized Tomography (CT Scan) of Abdominal Aorta using Low Osmolar Contrast (ICD-10-PCS; 2019-04-22)
PROC: B4241ZZ Computerized Tomography (CT Scan) of Superior Mesenteric Artery using Low Osmolar Contrast (ICD-10-PCS; 2019-04-22)
PROC: B4211ZZ Computerized Tomography (CT Scan) of Celiac Artery using Low Osmolar Contrast (ICD-10-PCS; 2019-04-22)
PROC: 5A09357 Assistance with Respiratory Ventilation, Less than 24 Consecutive Hours, Continuous Positive Airway Pressure (ICD-10-PCS; 2019-04-23)
PROC: 5A09357 Assistance with Respiratory Ventilation, Less than 24 Consecutive Hours, Continuous Positive Airway Pressure (ICD-10-PCS; 2019-04-24)
DX: A41.9 Sepsis, unspecified organism (principal); J18.9 Pneumonia, unspecified organism; J96.20 Acute and chronic respiratory failure, unspecified whether with hypoxia or hypercapnia; N17.9 Acute kidney failure, unspecified; J44.1 Chronic obstructive pulmonary disease with (acute) exacerbation; J44.0 Chronic obstructive pulmonary disease with (acute) lower respiratory infection; E11.9 Type 2 diabetes mellitus without complications; F31.9 Bipolar disorder, unspecified; Z60.2 Problems related to living alone; F41.9 Anxiety disorder, unspecified; G89.29 Other chronic pain; K21.9 Gastro-esophageal reflux disease without esophagitis; M54.9 Dorsalgia, unspecified; E78.00 Pure hypercholesterolemia, unspecified; Z79.52 Long term (current) use of systemic steroids; Z79.84 Long term (current) use of oral hypoglycemic drugs; Z87.891 Personal history of nicotine dependence; Z99.81 Dependence on supplemental oxygen; Z87.440 Personal history of urinary (tract) infections; Z88.1 Allergy status to other antibiotic agents; Z79.899 Other long term (current) drug therapy
CPT/HCPCS: 36415; 36556; 36600; 71045; 71275; 74174; 80053; 80202; 82803; 82948; 83605; 83735; 83880; 84100; 84145; 84484; 85018; 85025; 85610; 85730; 87040; 87081; 93005; 94640; 94660; 94760; 96365; 96368; 96375; 97112; 97116; 97161; 97530; 99285; 99291; G0378; J0456; J0696; J1650; J1815; J2060; J2270; J2405; J2543; J2920; J2930; J3370; J7030; J7512; Q9967

== ENCOUNTER 2019-04-29 09:32 | Emergency (ER) | payer MEDICARE, MEDICAID ==
[~2019-04-29] VITALS: Ht 167.6 cm; Wt 78.2 kg
[~2019-04-29 09:32] MED LIST changes: +ACET-75 PO; +ALBU18HF2 INH; -ALBU8.5H8 INH; -ASCO500C15 PO; -ASPI-612 PO; -AZI25OT PO; +BENZ-49 PO; -BUDE10.22 INH; +CHOL10002 PO; -CYCL1DRO OT; +CYCL5.5D EACHEYE; -DOCU-148 PO; +DOCU-20 PO; -DULO-31 PO; +DULO60CA65 PO; +FLUT15.87 NS; -FLUT1AER INH; +GUAI-1078 PO; +IBUP-1985 PO; -IPRA3AMP31 IH; -LACT1CAP26 PO; +METF-950 PO; -METF500T PO; -METO-292 PO; +METO10TA3 PO; -PRAV80TA PO; +PRAV80TA3 PO; +PRE5T PO; -QUET150T2 PO; +QUET150T4; +TIOT4MIS3 INH; +TRAM50TA2 PO; +TURM1POW PO
[2019-04-29 09:54] VITALS: BP 130/83
[2019-04-29 09:54] LABS: CLARITY,URINE CLEAR (Clear); COLOR,URINE YELLOW (Yellow); GLUCOSE, URINE NEGATIVE (Neg); KETONES,URINE NEGATIVE (Neg); LEUKOCYTE ESTERASE ,URINE NEGATIVE (Neg); NITRITES, URINE NEGATIVE (Neg); OCCULT BLOOD,URINE MODERATE (Neg); PROTEIN,URINE NEGATIVE (Neg); UROBILINOGEN,URINE 0.2 E.U/dL (0.2-1.0)
[2019-04-29 09:55] LABS: UA COLLECTION TYPE CLN CATCH MIDSTREAM
[2019-04-29 10:01] LABS: RBC,URINE 20-50 /HPF (0-2)
[2019-04-29 10:02] LABS: BACTERIA,URINE FEW /HPF (Neg); MUCUS STRANDS NONE SEEN /LPF (Neg); RENAL CELLS, URINE FEW /HPF; SQUAMOUS EPITHELIAL CELL,UR FEW /LPF (FEW); WBC CLUMPS,URINE FEW /HPF (NEGATIVE)
[2019-04-29] MEDS ORDERED: CEPH500C5 PO (10:16)
[2019-04-29] MEDS ORDERED: FLUC150T5 PO (10:16)
== END 2019-04-29 10:43 | disposition home or self-care (01) ==
LOC: ER 09:33
DX: J44.1 Chronic obstructive pulmonary disease with (acute) exacerbation (principal); N39.0 Urinary tract infection, site not specified; E78.00 Pure hypercholesterolemia, unspecified; K21.9 Gastro-esophageal reflux disease without esophagitis; E11.9 Type 2 diabetes mellitus without complications; G89.29 Other chronic pain; F41.9 Anxiety disorder, unspecified; F32.9 Major depressive disorder, single episode, unspecified; Z60.2 Problems related to living alone; Z88.1 Allergy status to other antibiotic agents; Z79.2 Long term (current) use of antibiotics; Z79.899 Other long term (current) drug therapy
CPT/HCPCS: 81001; 87088; 99283

== ENCOUNTER → 2020-08-16 | Outpatient (CLI) | payer MEDICARE, MEDICAID ==
[~2020-08-16] MED LIST changes: +CHOL-35 PO; -CHOL10002 PO; -DOCU-20 PO; +DOCU-348 PO; +FLUC150T5 PO
[2020-08-16 15:55] LABS: ABG HCO3 28.9 mmol/L (22.0-26.0); ABG OXYGEN SATURATION 93.9 % (94-97); ABG PCO2 (T) 44.5 mmHg (32.0-45.0); ABG PO2 (T) 68.2 mmHg (75.0-100.0); ALLEN'S TEST POSITIVE; FCOHb 1.5 % (0.0-3.9); FMetHb 0.3 % (0.0-1.5); FO2Hb 92.2 % (94-97); TOTAL HEMOGLOBIN 11.7 G/dl (12.0-16.0)
== END | disposition home or self-care (01) ==
LOC: RT 15:28
PROVIDERS: ATTEND Internal Medicine Pulmonary Disease
DX: J39.8 Other specified diseases of upper respiratory tract (principal)
CPT/HCPCS: 36600; 82803; 85018

== ENCOUNTER 2020-12-05 12:19 | Outpatient (CLI) | payer MEDICARE, MEDICAID ==
[~2020-12-05 12:19] MED LIST changes: -OMEP40CA13 PO; +OMEP40CA21 PO
== END 2020-12-05 23:59 | disposition home or self-care (01) ==
LOC: RT 12:19
DX: J44.9 Chronic obstructive pulmonary disease, unspecified (principal); J39.8 Other specified diseases of upper respiratory tract
CPT/HCPCS: 94618

== ENCOUNTER 2021-01-07 06:59 | Day surgery (SDC) | payer MEDICARE, MEDICAID ==
[2021-01-01 14:50] LABS: BASOPHILS % (AUTO) 0.1 % (0-1); EOSINOPHILS % (AUTO) 0 % (0-6); LYMPHOCYTES # (AUTO) 0.5 X10'3 (1.1-4.8); LYMPHOCYTES % (AUTO) 4.8 % (21-51); MEAN CORPUSCULAR HEMOGLOBIN 27.3 PG (27.0-31.0); MEAN CORPUSCULAR HGB CONC 31.8 g/dL (33.0-36.5); MEAN PLATELET VOLUME 7.1 FL (7.4-10.4); MONOCYTES # (AUTO) 0.2 X10'3 (0-0.9); MONOCYTES % (AUTO) 2.3 % (2-12); NEUTROPHILS # (AUTO) 9.6 X10'3 (1.8-7.7); NEUTROPHILS % (AUTO) 92.8 % (42-75); PRE OP HEMATOCRIT 35.3 % (35.0-45.0); PRE OP HEMOGLOBIN 11.2 g/dL (12.0-16.0); PRE OP PLATELET COUNT 369 X10'3 (140-440); RED BLOOD COUNT 4.11 X10'6 (4.20-5.60); RED CELL DISTRIBUTION WIDTH 15.5 % (11.5-14.5)
[2021-01-01 14:56] LABS: ALBUMIN 3.5 G/DL (3.4-5.0); ALBUMIN/GLOBULIN RATIO 0.9 (1.1-1.5); ALKALINE PHOSPHATASE 65 IU/L (46-116); BLOOD UREA NITROGEN 10 MG/DL (7-18); BUN/CREATININE RATIO 10.3 (6.6-38.0); CALCIUM 9.1 MG/DL (8.5-10.1); CHLORIDE 97 MMOL/L (99-107); CREATININE 0.97 MG/DL (0.40-0.90); PRE OP ALT 22 U/L (30-65); PRE OP ANION GAP 13 (8-16); PRE OP AST 11 U/L (10-37); PRE OP BILIRUB, TOTAL 0.2 MG/DL (0.0-1.0); PRE OP GLUCOSE 194 MG/DL (70-104); PRE OP POTASSIUM 4.2 MMOL/L (3.4-5.1); PRE OP SODIUM 134 MMOL/L (135-145); TOTAL CARBON DIOXIDE 23.8 MMOL/L (24-32); TOTAL PROTEIN 7.3 G/DL (6.4-8.2); eGFR 59 ML/MIN
[~2021-01-07] VITALS: Ht 165.1 cm; Wt 77.6 kg
[~2021-01-07 06:59] MED LIST changes: +ATR0.5NEB IH; -BENZ-49 PO; +BUDE10.2 INH; -CYCL5.5D EACHEYE; -FLUC150T5 PO; -FLUT15.87 NS; -GUAI-1078 PO; +METF-1203 PO; -METF-950 PO; +MONT-40 PO; +OSC500T PO; -PRAV80TA3 PO; -PRE5T PO; +PRED20TA PO; -TIOT4MIS3 INH; -TRAM50TA2 PO; +UMEC1DIS INH; +cefazolin/dext.iso 2gm/50ml 50 ML IV ONE; +famotidine 20mg tablet PO ONE; +ringers solution, lacted 1,000 ML IV SCH
[2021-01-07] MEDS ORDERED: LIDOcaine 0.5% (5mg/ml) 50ml vial ONE (08:05)
[2021-01-07] MEDS ORDERED: fentaNYL/PF 50MCG/1 ML 2ML syringe IV PRN ×2 (08:15)
[2021-01-07] MEDS ORDERED: labetalol 20mg/4ml (5mg/ml) syringe IV PRN (08:15)
[2021-01-07] MEDS ORDERED: ringers solution, lacted 1,000 ML IV SCH (08:15)
[2021-01-07] MEDS ORDERED: hydrALAZINE 20mg/ml inj. IV PRN (08:15)
[2021-01-07] MEDS ORDERED: morphine 4 MG/ML inj SYRINge IV PRN (08:15)
[2021-01-07] MEDS ORDERED: morphine 2 MG/ML inj. syringe IV PRN (08:15)
[2021-01-07] MEDS ORDERED: ondansetron/PF 4mg/2ml inj IV PRN (08:15)
[2021-01-07 08:30] VITALS: BP 104/59
[2021-01-07] MEDS ORDERED: BUPIVAcaine/PF 2.5mg/ml (0.25%) 10ml vial IJ ONE (08:39)
[2021-01-07] MEDS ORDERED: MIDAZolam 1 MG/ML 5ML VIAL ONE (09:06)
[2021-01-07] MEDS ORDERED: fentaNYL/PF 50MCG/1 ML 2ML syringe ONE (09:06)
[2021-01-07 09:36] VITALS: BP 127/83
--- NOTE | 2021-01-07 09:36 | NUR ---
ASSUME CARE PT AWAKE ALERT VSS ON RA SAT 100 NO DISTRESS DENIES PAIN SOFT WRAP TO LEFT HAND CMS TO LEFT HAND AND FINGERS. ICE APPLIED TO THE LT HAND CONT TO MONITOR Addendum: 01/07/21 at 1012 by Nancy Farley RN Amended: Links added.
[2021-01-07 09:50] VITALS: BP 133/85
[2021-01-07 10:00] VITALS: BP 130/77
[2021-01-07 10:10] VITALS: BP 111/86
[2021-01-07 10:30] VITALS: BP 120/60
--- NOTE | 2021-01-07 10:30 | NUR ---
PT AWAKE JENI POS VSS NO PAIN DC INST GIVEN NO ?'S OR COMC
--- NOTE | 2021-01-07 10:30 | NUR ---
MEETS CRITERIA TO DC HOME INSTR GIVEN Addendum: 01/07/21 at 1054 by Nancy Farley RN Amended: Links added.
== END 2021-01-07 10:36 | disposition home or self-care (01) ==
LOC: PAS 06:59
PROVIDERS: ATTEND Orthopaedic Surgery Hand Surgery
DX: G56.02 Carpal tunnel syndrome, left upper limb (principal); M19.032 Primary osteoarthritis, left wrist; J44.9 Chronic obstructive pulmonary disease, unspecified; G47.33 Obstructive sleep apnea (adult) (pediatric); E11.9 Type 2 diabetes mellitus without complications; K21.9 Gastro-esophageal reflux disease without esophagitis; F43.10 Post-traumatic stress disorder, unspecified; M17.0 Bilateral primary osteoarthritis of knee; M19.031 Primary osteoarthritis, right wrist; Z88.1 Allergy status to other antibiotic agents; Z79.899 Other long term (current) drug therapy; Z20.822 Contact with and (suspected) exposure to COVID-19; Z98.890 Other specified postprocedural states; Z87.891 Personal history of nicotine dependence; Z87.01 Personal history of pneumonia (recurrent)
CPT/HCPCS: 36415; 64721; 80053; 82948; 85025; 93005; J2001; J2250; J3010; J3490; U0003; U0005; Z7506; Z7512; A4215; J7120

== ENCOUNTER 2021-02-18 05:27 | Day surgery (SDC) | payer MEDICARE, MEDICAID ==
[2021-02-11 13:56] LABS: BASOPHILS % (AUTO) 0.2 % (0-1); EOSINOPHILS % (AUTO) 0 % (0-6); LYMPHOCYTES # (AUTO) 0.8 X10'3 (1.1-4.8); LYMPHOCYTES % (AUTO) 10.8 % (21-51); MEAN CORPUSCULAR HEMOGLOBIN 27.2 PG (27.0-31.0); MEAN CORPUSCULAR HGB CONC 31.9 g/dL (33.0-36.5); MEAN CORPUSCULAR VOLUME 85.1 FL (78-98); MEAN PLATELET VOLUME 6.6 FL (7.4-10.4); MONOCYTES # (AUTO) 0.5 X10'3 (0-0.9); MONOCYTES % (AUTO) 6.5 % (2-12); NEUTROPHILS % (AUTO) 82.5 % (42-75); PRE OP HEMATOCRIT 37.5 % (35.0-45.0); PRE OP PLATELET COUNT 345 X10'3 (140-440); RED CELL DISTRIBUTION WIDTH 16.4 % (11.5-14.5)
[2021-02-11 14:13] LABS: ALBUMIN/GLOBULIN RATIO 1.2 (1.1-1.5); ALKALINE PHOSPHATASE 45 IU/L (46-116); BLOOD UREA NITROGEN 9 MG/DL (7-18); BUN/CREATININE RATIO 8.9 (6.6-38.0); CALCIUM 8.5 MG/DL (8.5-10.1); CHLORIDE 98 MMOL/L (99-107); CREATININE 1.01 MG/DL (0.40-0.90); PRE OP ALT 25 U/L (30-65); PRE OP ANION GAP 9 (8-16); PRE OP AST 12 U/L (10-37); PRE OP BILIRUB, TOTAL 0.3 MG/DL (0.0-1.0); PRE OP GLUCOSE 171 MG/DL (70-104); PRE OP POTASSIUM 4.1 MMOL/L (3.4-5.1); PRE OP SODIUM 135 MMOL/L (135-145); TOTAL CARBON DIOXIDE 28.1 MMOL/L (24-32); TOTAL PROTEIN 7.3 G/DL (6.4-8.2); eGFR 56 ML/MIN
[~2021-02-18] VITALS: Ht 152.4 cm; Wt 76.0 kg
[~2021-02-18 05:27] MED LIST changes: -CHOL-35 PO; +PANT40TA54 PO; +PRED10TA PO; -PRED20TA PO; -cefazolin/dext.iso 2gm/50ml 50 ML IV ONE; -famotidine 20mg tablet PO ONE
[2021-02-18] MEDS ORDERED: albuterol 2.5 MG/3 ML nebule NEB ONE (05:30)
[2021-02-18] MEDS ORDERED: famotidine 20mg tablet PO ONE (05:30)
[2021-02-18] MEDS ORDERED: cefazolin/dext.iso 2gm/50ml IV ONE (05:30)
[2021-02-18 06:22] VITALS: BP 129/88
[2021-02-18] MEDS ORDERED: BUPIVAcaine 0.5% inj/PF 30 ML ONE (06:57)
[2021-02-18] MEDS ORDERED: LIDOcaine 0.5% (5mg/ml) 50ml vial ONE (07:16)
[2021-02-18] MEDS ORDERED: morphine 2 MG/ML inj. syringe IV PRN (07:20)
[2021-02-18] MEDS ORDERED: ondansetron/PF 4mg/2ml inj IV PRN (07:20)
[2021-02-18] MEDS ORDERED: morphine 4 MG/ML inj SYRINge IV PRN (07:20)
[2021-02-18] MEDS ORDERED: fentaNYL/PF 50MCG/1 ML 2ML syringe IV PRN ×2 (07:20)
[2021-02-18] MEDS ORDERED: ringers solution, lacted 1,000 ML IV SCH (07:20)
[2021-02-18] MEDS ORDERED: hydrALAZINE 20mg/ml inj. IV PRN (07:20)
[2021-02-18] MEDS ORDERED: labetalol 20mg/4ml (5mg/ml) syringe IV PRN (07:20)
[2021-02-18] MEDS ORDERED: MIDAZolam 1 MG/ML 5ML VIAL ONE (07:25)
[2021-02-18] MEDS ORDERED: fentaNYL/PF 50MCG/1 ML 2ML syringe ONE (07:25)
[2021-02-18] MEDS ORDERED: BUPIVAcaine 0.5% inj/PF 30 ml vial IJ ONE (08:25)
[2021-02-18 08:30] VITALS: BP 133/75
--- NOTE | 2021-02-18 08:30 | NUR ---
Received from OR via [facility], accompanied by Anesthesiologist dR. FRENCH and report given by Anesthesiolgist. 20G PIV TO LEFT HAND WITH LR RUNNING AT 100ML/HR. DRESSING TO RIGHT WRIST CDI, CSM GOOD. ARRIVES ON MASK FOR OXYGEN AT 4L. VSS AND WITHIN BASELINE. BLOCK STATED TO RIGHT WRIST. PATIENT SHOWS NO SIGNS OF PAIN AT THIS TIME. WILL CONTTINUE TO MONITOR.
[2021-02-18 08:40] VITALS: BP 136/82
[2021-02-18 08:50] VITALS: BP 127/75
[2021-02-18 09:00] VITALS: BP 138/80
--- NOTE | 2021-02-18 09:00 | NUR ---
PATIENT DISCHARGED HOME WITH FRIEND, LEOBARDO. PIV DISCONTINUED. VSS. DENIES PAIN. GIVEN DISCHARGE INFORMATION AND TOLD SHE WILL RECEIVE A FOLLOW UP CALL ABOUT CARE. DENIES PAIN. NOWAK. DRESSING CDI. MOVE, ELEVATE, ICE FINGERS DONT GET DRESSING WET FOR [address] VAIL OFFICE WITH ANY ISSUES. PAPERWORK GIVEN. DISCHARGED WITH ALL BELONGINGS ACCOUNTED FOR.
== END 2021-02-18 09:00 | disposition home or self-care (01) ==
LOC: PAS 05:27
PROVIDERS: ATTEND Orthopaedic Surgery Hand Surgery
DX: G56.01 Carpal tunnel syndrome, right upper limb (principal); M19.031 Primary osteoarthritis, right wrist; J44.9 Chronic obstructive pulmonary disease, unspecified; M17.0 Bilateral primary osteoarthritis of knee; M19.032 Primary osteoarthritis, left wrist; E66.9 Obesity, unspecified; Z68.28 Body mass index [BMI] 28.0-28.9, adult; G47.33 Obstructive sleep apnea (adult) (pediatric); K21.9 Gastro-esophageal reflux disease without esophagitis; F43.10 Post-traumatic stress disorder, unspecified; E11.9 Type 2 diabetes mellitus without complications; Z20.822 Contact with and (suspected) exposure to COVID-19; Z79.899 Other long term (current) drug therapy; Z79.82 Long term (current) use of aspirin; Z88.1 Allergy status to other antibiotic agents; Z87.891 Personal history of nicotine dependence; Z98.890 Other specified postprocedural states; Z86.73 Personal history of transient ischemic attack (TIA), and cerebral infarction without residual deficits
CPT/HCPCS: 36415; 64721; 80053; 82948; 85025; 94640; 94760; J2001; J2250; J3010; U0003; U0005; Z7506; Z7512; A4215; J0690; J3490; J7120; S0020

== ENCOUNTER 2021-09-04 10:10 | Emergency (ER) | payer MEDICARE, MEDICAID ==
[~2021-09-04] VITALS: Ht 165.1 cm; Wt 79.1 kg
[~2021-09-04 10:10] MED LIST changes: -METO10TA3 PO; -OMEP40CA21 PO; -PRED10TA PO; -QUET150T4; +QUET150T4 PO; +guaiFENesin/codeine oral syrup PO; -ringers solution, lacted 1,000 ML IV SCH
[2021-09-04 10:49] LABS: BASOPHILS % (AUTO) 0.4 % (0-1); EOSINOPHILS # (AUTO) 0.1 X10'3 (0-0.9); EOSINOPHILS % (AUTO) 0.5 % (0-6); HEMATOCRIT 34.1 % (35.0-45.0); HEMOGLOBIN 10.5 g/dl (12.0-16.0); LYMPHOCYTES % (AUTO) 8.5 % (21-51); MEAN CORPUSCULAR HEMOGLOBIN 23.6 PG (27.0-31.0); MEAN CORPUSCULAR HGB CONC 30.7 g/dL (33.0-36.5); MEAN PLATELET VOLUME 6.3 FL (7.4-10.4); MONOCYTES # (AUTO) 0.8 X10'3 (0-0.9); NEUTROPHILS # (AUTO) 9.6 X10'3 (1.8-7.7); NEUTROPHILS % (AUTO) 83.6 % (42-75); PLATELET COUNT 411 X10'3 (140-440); RED BLOOD COUNT 4.43 X10'6 (4.20-5.60); RED CELL DISTRIBUTION WIDTH 17.7 % (11.5-14.5); WHITE BLOOD COUNT 11.5 X10'3 (4.5-11.0)
[2021-09-04 11:11] LABS: ALANINE AMINOTRANSFERASE 13 U/L (12-78); ALBUMIN 3.6 G/DL (3.4-5.0); ALKALINE PHOSPHATASE 67 IU/L (46-116); ANION GAP 10 (8-16); ASPARTATE AMINO TRANSFERASE 9 U/L (10-37); BILIRUBIN,TOTAL 0.2 MG/DL (0.1-1.0); BLOOD UREA NITROGEN 7 MG/DL (7-18); BUN/CREATININE RATIO 8.1 (6.6-38.0); CALCIUM 8.6 MG/DL (8.5-10.1); CHLORIDE 91 MMOL/L (99-107); CREATININE 0.86 MG/DL (0.40-0.90); GLUCOSE 113 MG/DL (70-104); SODIUM 135 MMOL/L (135-145); TOTAL CARBON DIOXIDE 34.2 MMOL/L (24-32); TOTAL PROTEIN 7.1 G/DL (6.4-8.2); eGFR 67 ML/MIN
[2021-09-04 11:20] LABS: LIPASE 474 U/L (73-393)
[2021-09-04 11:36] LABS: CLARITY,URINE CLEAR (Clear); COLOR,URINE YELLOW (Yellow); GLUCOSE, URINE NEGATIVE (Neg); KETONES,URINE NEGATIVE (Neg); LEUKOCYTE ESTERASE ,URINE NEGATIVE (Neg); NITRITES, URINE NEGATIVE (Neg); OCCULT BLOOD,URINE NEGATIVE (Neg); PROTEIN,URINE NEGATIVE (Neg); UROBILINOGEN,URINE 0.2 E.U/dL (0.2-1.0)
[2021-09-04 11:38] LABS: URINE HCG NEGATIVE (NEG)
[2021-09-04 11:43] LABS: UA COLLECTION TYPE OTHER
[2021-09-04 11:49] LABS: URINE BARBITUATE SCREEN NEGATIVE (Neg); URINE BENZODIAZEPINES SCREEN NEGATIVE (Neg); URINE CANNABINOID SCREEN NEGATIVE (Neg); URINE COCAINE SCREEN NEGATIVE (Neg); URINE METHADONE SCREEN NEGATIVE (Neg); URINE OPIATE SCREEN NEGATIVE (Neg); URINE PHENCYCLIDINE SCREEN NEGATIVE (Neg)
[2021-09-04 11:50] LABS: URINE AMPHETAMINE SCREEN POSITIVE (Neg)
[2021-09-04 13:08] VITALS: BP 148/97
[2021-09-04] MEDS ORDERED: albuterol 2.5 MG/3 ML nebule NEB ONE (13:15)
== END 2021-09-04 14:17 | disposition home or self-care (01) ==
LOC: ER 10:11
DX: M54.50 Low back pain, unspecified (principal); R10.84 Generalized abdominal pain; F15.90 Other stimulant use, unspecified, uncomplicated; R10.2 Pelvic and perineal pain; K62.89 Other specified diseases of anus and rectum; E78.00 Pure hypercholesterolemia, unspecified; J44.9 Chronic obstructive pulmonary disease, unspecified; G47.30 Sleep apnea, unspecified; K21.9 Gastro-esophageal reflux disease without esophagitis; E11.9 Type 2 diabetes mellitus without complications; G89.29 Other chronic pain; Z87.01 Personal history of pneumonia (recurrent); Z87.440 Personal history of urinary (tract) infections; Z72.89 Other problems related to lifestyle; Z88.1 Allergy status to other antibiotic agents; Z79.899 Other long term (current) drug therapy; Z79.2 Long term (current) use of antibiotics
CPT/HCPCS: 36415; 71045; 74176; 80053; 80305; 81003; 81025; 83690; 83880; 84484; 85025; 93005; 99285

== ENCOUNTER 2021-10-02 10:03 | Outpatient (CLI) | payer MEDICARE, MEDICAID ==
[~2021-10-02] VITALS: Ht 160 cm; Wt 79.4 kg
[2021-10-02] MEDS ORDERED: albuterol 2.5 MG/3 ML nebule NEB ONE (11:00)
== END 2021-10-02 23:59 | disposition home or self-care (01) ==
LOC: RT 10:03
DX: J98.4 Other disorders of lung (principal); R94.2 Abnormal results of pulmonary function studies; J39.8 Other specified diseases of upper respiratory tract
CPT/HCPCS: 94060; 94727; 94729; 94760; J7030